=== PATIENT | female | born 1940 | race Caucasian/White ===

== ENCOUNTER 2017-11-30 19:51 | Inpatient (IN) ==
[2017-12-01] MEDS ORDERED: Cyanocobalamin (B-12) 1,000 MCG/ML VIAL IM ONE (00:23)
[2017-12-01] MEDS: Multivit/Ca/Min/Fe/FA 1 TAB TABLET PO SCH (10:37)
[2017-12-01] MEDS: Letrozole 2.5 MG TABLET PO SCH (10:38)
[2017-12-01] MEDS: Sennosides/Docusate Sodium TABLET PO SCH ×2 (10:38→20:02)
--- NOTE | 2017-12-01 15:45 | Internal Med History&Physical ---
Date of Encounter: 12/01/17 Time of Encounter: 15:15 Assessment and Plan (1) Breast cancer metastasized to bone Current visit: No Status: Acute As per oncologist Qualifiers: Laterality: left Qualified Code(s): C50.912 - Malignant neoplasm of unspecified site of left female breast; C79.51 - Secondary malignant neoplasm of bone (2) Left arm weakness Current visit: Yes Status: Acute She will have PT and OT evaluation tomorrow with ongoing intervention. (3) Hypokalemia Current visit: Yes Status: Acute Potassium level was 3.1 11/22/2017. Will recheck in a.m. (4) B12 deficiency Current visit: Yes Status: Acute Will check B12 level in a.m. (5) Thrombocytopenia Current visit: Yes Status: Acute Platelet count was 61K on 11/22/2017. Will recheck in a.m. (6) Fatigue Current visit: No Status: Acute Will have therapy evaluation in a.m. Qualifiers: Fatigue type: chronic, unspecified Qualified Code(s): R53.82 - Chronic fatigue, unspecified Internal Medicine - H&P: HPI Chief complaint: Status post cervical spine surgery Admitted From: Hospital to Hospital Transfer Plans for Post Hospital Care: Home History of present illness: Ms. Nick is a 77 year old female who was transferred to [facility] swing bed after a November 23- [facility] hospitalization for C6 nondisplaced fracture. Family reports she had multiple falls prior to the fracture. Neurosurgery performed a stabilization procedure with hardware placement and discectomy. She was admitted to swing bed for therapy prior to returning to independent living. She was diagnosed with breast cancer in 2005 and had recurrence documented January 2014 with multiple metastases in bones. She had left hip replacement January 2014 following pathologic fracture. The C6 vertebra was also found to have tumor involvement during her recent hospitalization. She is on hormone therapy but has not had XRT. She reports minimal pain present. She denies other internal malignancies. She has had anemia in the past with B12 deficiency. Past Med Surg Social Fam HX - Past Medical History Medical history: cancer, hyperlipidemia, hypertension, other Psychiatric history: no psych history - Past Surgical History Surgical History: appendectomy, breast surgery, cholecystectomy - Social History Smoking Status: Never smoker Smokeless Tobacco Status: No Alcohol use: none Drug use: none Internal Medicine - H&P: Meds Carvedilol [Coreg] 6.25 mg PO BIDWM 03/23/15 [History] Cyanocobalamin (B-12) [Vitamin B12] 1,000 mcg IM QMONTH 03/23/15 [History] Losartan [Cozaar] 2 tab PO DAILY 03/23/15 [History] Multivitamin [Multi-Day Vitamins] 1 each PO DAILY 03/23/15 [History] Rosuvastatin Calcium [Crestor] 10 mg PO DAILY 03/23/15 [History] Letrozole [Femara] 2.5 mg PO DAILY #90 tablet 03/19/17 [Rx] 3 Allergy/AdvReac Type Severity Reaction Status Date / Time Penicillins [PCN] Allergy Swelling Verified 10/29/17 13:06 of Lip/Tongue/Throat Sulfa (Sulfonamide Allergy Rash Verified 10/29/17 13:06 Antibiotics) All Systems PM: A 10-system review of systems was performed and is negative for pertinent findings except as documented above in the HPI. Review of systems: Gen.: Her weight has been stable the past few months Cardiovascular: She has history of hypertension but no MO heart failure DVT or pulmonary embolus. Respiratory: She is a lifelong nonsmoker and has no known chronic lung disease GI: She has had cholecystectomy but no disorders of her liver or exocrine pancreas : She has had nocturia but no other kidney or bladder disorders Neurologic: No history of large distribution strokes or seizures. Family reports she has had confusion since hospitalization in the past week. Endocrine: She has history of hyperlipidemia but no known diabetes or thyroid disease Hematology/oncology: As per history of present illness Psychiatric: She has anxiety but no significant depression or other mental health issues [place] skeletal: She has DJD but no known gout or other bone joint or muscle disorders. - Constitutional Vitals: Temp Pulse Resp BP Pulse Ox 97.6 F 92 17 148/85 94 12/01/17 07:15 12/01/17 07:15 12/01/17 07:15 12/01/17 07:15 12/01/17 07:15 Exam: Gen.: She is a well-developed well-nourished female resting comfortably in a chair at bedside. HEENT: Head is atraumatic and normocephalic. Eyes: EOMI. There is no scleral icterus. Mouth: Mucosa is moist. Neck: She is wearing a rigid collar. There is a healing lower neck anteriorly incision from recent cervical spine surgery. Heart: Regular without murmurs gallops or ectopics Lungs: No wheezes or crackles are heard. Abdomen: Soft and nontender. No masses or guarding are noted. Extremities: There is no cyanosis or clubbing noted. There is trace edema on the dorsum of the feet bilaterally. Neurologic: Mental status: She is able to answer a few questions and generally follows commands. Cranial nerves: Smile is symmetric. Forehead wrinkles bilaterally. Tongue protrudes midline. EOMI. Motor: She has symmetric strength on plantar flexion at the ankles. Dorsiflexion strength is 4/5 on the left and 4+/5 on the right. She cannot hold her left arm up against gravity. The right arm can be outstretched against gravity but appears unstable in movement. Finger to nose testing is intact with the right arm. Skin: Warm and dry.
[2017-12-02] MEDS: Multivit/Ca/Min/Fe/FA 1 TAB TABLET PO SCH (08:41)
[2017-12-02] MEDS: Letrozole 2.5 MG TABLET PO SCH (08:41)
[2017-12-02] MEDS: Sennosides/Docusate Sodium TABLET PO SCH ×2 (08:41→21:34)
[2017-12-02 08:52] LABS: Hematocrit 29.1 % (35.3-44.9); Hemoglobin 9.8 g/dL (11.5-15.4); Mean Corpuscular HGB Conc 33.7 g/dL (31.6-35.5); Mean Corpuscular Hemoglobin 31.7 pg (28.0-33.3); Mean Corpuscular Volume 94.2 fL (83.0-100.0); Nucleated Red Blood Cells 0.3 /100 WBC (0); Platelet Count 168 K/mcL (140-400); Red Blood Count 3.09 M/mcL (3.82-4.97); Red Cell Distribution Width 14.6 % (11.5-14.5)
[2017-12-02 09:39] LABS: Thyroid Stimulating Hormone 5.784 mcIU/mL (0.340-5.600)
[2017-12-02 10:12] LABS: Alanine Aminotransferase 49 Units/L (7-52); Alkaline Phosphatase 136 Units/L (34-104); Aspartate Amino Transferase 85 Units/L (13-39); BUN/Creatinine Ratio 20 (6-26); Bilirubin,Total 0.9 mg/dL (0.3-1.0); Blood Urea Nitrogen 10 mg/dL (8-23); Carbon Dioxide 28 mEq/L (23-29); Chloride 104 mEq/L (98-107); Glucose 100 mg/dL (70-105); Osmolality,Calculated 289 (280-300); Potassium 3.2 mEq/L (3.5-5.1); Sodium 140 mEq/L (136-145); eGFR For African Americans > 60 (> 60); eGFR For Non-African Americans > 60 (> 60)
[2017-12-02 11:25] LABS: Lymphocytes # 1.2 K/mcL (0.6-4.6); Monocytes # 0.3 K/mcL (0.0-1.3); Neutrophils # 4.6 K/mcL (1.6-8.9)
[2017-12-02 11:26] LABS: Platelet Estimate Normal (Normal); Reactive Lymphocytes Present (Not Present)
--- NOTE | 2017-12-02 12:43 | Internal Med Progress Note ---
Date of Encounter: 12/02/17 Time of Encounter: 12:35 - Assessment and plan (1) Breast cancer metastasized to bone Current Visit: No Status: Acute Assessment and plan: December 02. As per oncologist Qualifiers: Laterality: left Qualified Code(s): C50.912 - Malignant neoplasm of unspecified site of left female breast; C79.51 - Secondary malignant neoplasm of bone (2) Left arm weakness Current Visit: Yes Status: Acute Assessment and plan: December 02. As per therapy (3) Hypokalemia Current Visit: Yes Status: Acute Assessment and plan: December 02. Potassium low at 3.2. Will give supplemental potassium and monitor labs. (4) B12 deficiency Current Visit: Yes Status: Acute Assessment and plan: December 02. B12 level pending. (5) Thrombocytopenia Current Visit: Yes Status: Acute Assessment and plan: December 02. Resolved. Platelet count normal at 168K. (6) Fatigue Current Visit: No Status: Acute Assessment and plan: December 02. Continue present management Qualifiers: Fatigue type: chronic, unspecified Qualified Code(s): R53.82 - Chronic fatigue, unspecified (7) Anemia Current Visit: Yes Status: Acute Assessment and plan: December 02. Will order anemia testing in a.m. Qualifiers: Anemia type: unspecified type Qualified Code(s): D64.9 - Anemia, unspecified - Subjective Interval history: December 02. She has no new complaints. - Constitutional Vitals: Temp Pulse Resp BP Pulse Ox 99.1 F 112 20 105/99 94 12/02/17 07:32 12/02/17 07:32 12/02/17 07:32 12/02/17 07:32 12/02/17 07:32 Exam: She is sitting in a chair at bedside resting comfortably finishing her lunch. Her affect is bright and cheerful. She is more alert and talkative today. She answers questions appropriately. I reviewed her medications. I reviewed pertinent lab results with her. Internal Medicine: Result - Labs CBC & Chem 7: 12/02/17 08:15 12/02/17 08:15 Labs: Short CBC 12/02/17 Range/Units 08:15 WBC 6.6 (4.3-11.1) K/mcL Hgb 9.8 L (11.5-15.4) g/dL Hct 29.1 L (35.3-44.9) % Plt Count 168 (140-400) K/mcL Neutrophils # 4.6 (1.6-8.9) K/mcL BMP 12/02/17 08:15 Sodium 140 Potassium 3.2 L Chloride 104 Carbon Dioxide 28 BUN 10 Creatinine 0.49 L Glucose 100 Calcium 8.0 L Liver Function 12/02/17 Range/Units 08:15 Total Bilirubin 0.9 (0.3-1.0) mg/dL AST 85 H (13-39) Units/L ALT 49 (7-52) Units/L Alkaline Phosphatase 136 H (34-104) Units/L Albumin 3.0 L (3.5-5.7) g/dL Consult Discharge Plan - Plan Referrals: Anna Beckett, VICE PRESIDENT PAYER [Primary Care Provider] - 1 week
[2017-12-03 07:09] LABS: Basophils % 0.4 %; Eosinophils % 0.2 %; Hematocrit 25.7 % (35.3-44.9); Hemoglobin 8.5 g/dL (11.5-15.4); Immature Granulocytes % 5.1 % (0-4); Lymphocytes # 1.8 K/mcL (0.6-4.6); Lymphocytes % 33.5 %; Mean Corpuscular HGB Conc 33.1 g/dL (31.6-35.5); Mean Corpuscular Hemoglobin 31.5 pg (28.0-33.3); Mean Corpuscular Volume 95.2 fL (83.0-100.0); Mean Platelet Volume 11.8 fL (9.4-12.4); Monocytes # 0.7 K/mcL (0.0-1.3); Monocytes % 12.7 %; Neutrophils # 2.5 K/mcL (1.6-8.9); Platelet Count 146 K/mcL (140-400); Segmented Neutrophils % 48.1 %
[2017-12-03 07:33] LABS: BUN/Creatinine Ratio 20 (6-26); Blood Urea Nitrogen 10 mg/dL (8-23); Carbon Dioxide 30 mEq/L (23-29); Chloride 105 mEq/L (98-107); Glucose 81 mg/dL (70-105); Osmolality,Calculated 290 (280-300); Potassium 3.3 mEq/L (3.5-5.1); Sodium 141 mEq/L (136-145); eGFR For African Americans > 60 (> 60); eGFR For Non-African Americans > 60 (> 60)
[2017-12-03] MEDS: Letrozole 2.5 MG TABLET PO SCH (08:10)
[2017-12-03] MEDS: Sennosides/Docusate Sodium TABLET PO SCH ×2 (08:10→20:43)
[2017-12-03] MEDS: Multivit/Ca/Min/Fe/FA 1 TAB TABLET PO SCH (08:10)
[2017-12-03 09:01] LABS: Platelet Estimate Normal (Normal)
[2017-12-03 11:40] LABS: % Iron Saturation 27 % (15-50); Ferritin 1170 ng/ml (10-120); Iron 78 mcg/dL (50-170); Transferrin 210 mg/dL (203-362)
--- NOTE | 2017-12-03 15:56 | Internal Med Progress Note ---
Date of Encounter: 12/03/17 Time of Encounter: 15:45 - Assessment and plan (1) Breast cancer metastasized to bone Current Visit: No Status: Acute Assessment and plan: December 02. As per oncologist Qualifiers: Laterality: left Qualified Code(s): C50.912 - Malignant neoplasm of unspecified site of left female breast; C79.51 - Secondary malignant neoplasm of bone (2) Left arm weakness Current Visit: Yes Status: Acute Assessment and plan: December 02. As per therapy December 03. She had pronator drift and left arm weakness today unchanged from admission. Continue therapy intervention. (3) Hypokalemia Current Visit: Yes Status: Acute Assessment and plan: December 02. Potassium low at 3.2. Will give supplemental potassium and monitor labs. December 03. Improving. Continue supplemental potassium. (4) B12 deficiency Current Visit: Yes Status: Acute Assessment and plan: December 02. B12 level pending. December 03. B12 level greater than 1500. Remain off supplemental B12 for now. (5) Thrombocytopenia Current Visit: Yes Status: Acute Assessment and plan: December 02. Resolved. Platelet count normal at 168K. (6) Fatigue Current Visit: No Status: Acute Assessment and plan: December 02. Continue present management Qualifiers: Fatigue type: chronic, unspecified Qualified Code(s): R53.82 - Chronic fatigue, unspecified (7) Anemia Current Visit: Yes Status: Acute Assessment and plan: December 02. Will order anemia testing in a.m. December 03. Anemia testing showed iron 78, transferrin saturation 27%, transferrin 210, ferritin 1170, B12 >1500, and folate >22.3. Hemoglobin has decreased to 8.5. We will continue to monitor CBC. Qualifiers: Anemia type: unspecified type Qualified Code(s): D64.9 - Anemia, unspecified - Subjective Interval history: December 02. She has no new complaints. December 03. She has no new complaints. - Constitutional Vitals: Temp Pulse Resp BP Pulse Ox 97.6 F 80 20 123/64 93 12/03/17 07:29 12/03/17 07:29 12/03/17 07:29 12/03/17 07:29 12/03/17 07:29 Exam: She is resting comfortably in bed and appears in no acute distress. Her affect is bright and cheerful. She is very talkative today. I reviewed her medications and lab results. Internal Medicine: Result - Labs CBC & Chem 7: 12/03/17 06:15 12/03/17 06:15 Labs: Short CBC 12/03/17 Range/Units 06:15 WBC 5.3 (4.3-11.1) K/mcL Hgb 8.5 L (11.5-15.4) g/dL Hct 25.7 L (35.3-44.9) % Plt Count 146 (140-400) K/mcL Neutrophils # 2.5 (1.6-8.9) K/mcL BMP 12/03/17 06:15 Sodium 141 Potassium 3.3 L Chloride 105 Carbon Dioxide 30 H BUN 10 Creatinine 0.51 L Glucose 81 Calcium 8.0 L Consult Discharge Plan - Plan Referrals: Anna Beckett, REPAIR WEAVER [Primary Care Provider] - 1 week
[2017-12-03] MEDS ORDERED: Gabapentin 100 MG CAPSULE PO ONE (22:40)
[2017-12-04] MEDS: Sennosides/Docusate Sodium TABLET PO SCH ×2 (08:47→21:11)
[2017-12-04] MEDS: Multivit/Ca/Min/Fe/FA 1 TAB TABLET PO SCH (08:48)
[2017-12-04] MEDS: Letrozole 2.5 MG TABLET PO SCH (08:48)
[2017-12-05] MEDS: Letrozole 2.5 MG TABLET PO SCH (09:10)
[2017-12-05] MEDS: Sennosides/Docusate Sodium TABLET PO SCH ×2 (09:11→20:43)
[2017-12-05] MEDS: Multivit/Ca/Min/Fe/FA 1 TAB TABLET PO SCH (09:11)
[2017-12-06 06:33] LABS: Basophils % 0.2 %; Eosinophils % 0.2 %; Hematocrit 27.1 % (35.3-44.9); Hemoglobin 8.7 g/dL (11.5-15.4); Immature Granulocytes % 0.5 % (0-4); Lymphocytes # 1.3 K/mcL (0.6-4.6); Lymphocytes % 30.2 %; Mean Corpuscular HGB Conc 32.1 g/dL (31.6-35.5); Mean Corpuscular Hemoglobin 31.6 pg (28.0-33.3); Mean Corpuscular Volume 98.5 fL (83.0-100.0); Mean Platelet Volume 11.1 fL (9.4-12.4); Monocytes # 0.6 K/mcL (0.0-1.3); Monocytes % 13.3 %; Neutrophils # 2.5 K/mcL (1.6-8.9); Platelet Count 133 K/mcL (140-400); Red Blood Count 2.75 M/mcL (3.82-4.97); Segmented Neutrophils % 55.6 %
[2017-12-06 06:54] LABS: BUN/Creatinine Ratio 21 (6-26); Blood Urea Nitrogen 12 mg/dL (8-23); Calcium 8.8 mg/dL (8.6-10.3); Carbon Dioxide 31 mEq/L (23-29); Chloride 105 mEq/L (98-107); Glucose 88 mg/dL (70-105); Osmolality,Calculated 295 (280-300); Potassium 3.4 mEq/L (3.5-5.1); Sodium 143 mEq/L (136-145); eGFR For African Americans > 60 (> 60); eGFR For Non-African Americans > 60 (> 60)
[2017-12-06 07:01] LABS: Platelet Estimate Normal (Normal)
[2017-12-06] MEDS: Letrozole 2.5 MG TABLET PO SCH (08:29)
[2017-12-06] MEDS: Sennosides/Docusate Sodium TABLET PO SCH ×2 (08:29→21:06)
[2017-12-06] MEDS: Multivit/Ca/Min/Fe/FA 1 TAB TABLET PO SCH (08:29)
--- NOTE | 2017-12-06 16:10 | Internal Med Progress Note ---
Date of Encounter: 12/06/17 Time of Encounter: 16:00 - Assessment and plan (1) Breast cancer metastasized to bone Current Visit: No Status: Acute Assessment and plan: December 02. As per oncologist Qualifiers: Laterality: left Qualified Code(s): C50.912 - Malignant neoplasm of unspecified site of left female breast; C79.51 - Secondary malignant neoplasm of bone (2) Left arm weakness Current Visit: Yes Status: Acute Assessment and plan: December 02. As per therapy December 03. She had pronator drift and left arm weakness today unchanged from admission. Continue therapy intervention. (3) Hypokalemia Current Visit: Yes Status: Acute Assessment and plan: December 02. Potassium low at 3.2. Will give supplemental potassium and monitor labs. December 03. Improving. Continue supplemental potassium. December 06. Further improvement. Continue present regimen. (4) B12 deficiency Current Visit: Yes Status: Acute Assessment and plan: December 02. B12 level pending. December 03. B12 level greater than 1500. Remain off supplemental B12 for now. (5) Thrombocytopenia Current Visit: Yes Status: Acute Assessment and plan: December 02. Resolved. Platelet count normal at 168K. December 06. Slight decrease to 133K today. Continue to monitor. (6) Fatigue Current Visit: No Status: Acute Assessment and plan: December 02. Continue present management Qualifiers: Fatigue type: chronic, unspecified Qualified Code(s): R53.82 - Chronic fatigue, unspecified (7) Anemia Current Visit: Yes Status: Acute Assessment and plan: December 02. Will order anemia testing in a.m. December 03. Anemia testing showed iron 78, transferrin saturation 27%, transferrin 210, ferritin 1170, B12 >1500, and folate >22.3. Hemoglobin has decreased to 8.5. We will continue to monitor CBC. December 06. Hemoglobin slightly improved at 8.7. Continue to monitor. Qualifiers: Anemia type: unspecified type Qualified Code(s): D64.9 - Anemia, unspecified - Subjective Interval history: December 02. She has no new complaints. December 03. She has no new complaints. December 06. She has no new complaints and feels better. - Constitutional Vitals: Temp Pulse Resp BP Pulse Ox 98.0 F 85 16 138/73 96 12/06/17 07:07 12/06/17 07:07 12/06/17 07:07 12/06/17 07:07 12/06/17 07:07 Exam: She is resting comfortably in bed and appears in no acute distress. Her affect is bright and cheerful. There is no extremity edema. I reviewed her medications and lab results. Internal Medicine: Result - Labs CBC & Chem 7: 12/06/17 06:13 12/06/17 06:13 Labs: Short CBC 12/06/17 Range/Units 06:13 WBC 4.4 (4.3-11.1) K/mcL Hgb 8.7 L (11.5-15.4) g/dL Hct 27.1 L (35.3-44.9) % Plt Count 133 L (140-400) K/mcL Neutrophils # 2.5 (1.6-8.9) K/mcL BMP 12/06/17 06:13 Sodium 143 Potassium 3.4 L Chloride 105 Carbon Dioxide 31 H BUN 12 Creatinine 0.57 L Glucose 88 Calcium 8.8 Consult Discharge Plan - Plan Referrals: Anna Beckett, JAVA ANDROID DEVELOPER [Primary Care Provider] - 1 week
[2017-12-07] MEDS: Letrozole 2.5 MG TABLET PO SCH (09:03)
[2017-12-07] MEDS: Sennosides/Docusate Sodium TABLET PO SCH ×2 (09:04→21:21)
[2017-12-07] MEDS: Multivit/Ca/Min/Fe/FA 1 TAB TABLET PO SCH (09:04)
[2017-12-08] MEDS: Letrozole 2.5 MG TABLET PO SCH (08:53)
[2017-12-08] MEDS: Multivit/Ca/Min/Fe/FA 1 TAB TABLET PO SCH (08:53)
[2017-12-08] MEDS: Sennosides/Docusate Sodium TABLET PO SCH ×2 (08:54→20:30)
--- NOTE | 2017-12-08 10:27 | Internal Med Progress Note ---
Date of Encounter: 12/08/17 Time of Encounter: 10:20 - Assessment and plan (1) Breast cancer metastasized to bone Current Visit: No Status: Acute Assessment and plan: December 02. As per oncologist Qualifiers: Laterality: left Qualified Code(s): C50.912 - Malignant neoplasm of unspecified site of left female breast; C79.51 - Secondary malignant neoplasm of bone (2) Left arm weakness Current Visit: Yes Status: Acute Assessment and plan: December 02. As per therapy December 03. She had pronator drift and left arm weakness today unchanged from admission. Continue therapy intervention. (3) Hypokalemia Current Visit: Yes Status: Acute Assessment and plan: December 02. Potassium low at 3.2. Will give supplemental potassium and monitor labs. December 03. Improving. Continue supplemental potassium. December 06. Further improvement. Continue present regimen. December 08. Continue present regimen. Recheck labs in a.m. (4) B12 deficiency Current Visit: Yes Status: Acute Assessment and plan: December 02. B12 level pending. December 03. B12 level greater than 1500. Remain off supplemental B12 for now. (5) Thrombocytopenia Current Visit: Yes Status: Acute Assessment and plan: December 02. Resolved. Platelet count normal at 168K. December 06. Slight decrease to 133K today. Continue to monitor. December 08. Recheck labs in a.m. (6) Fatigue Current Visit: No Status: Acute Assessment and plan: December 02. Continue present management Qualifiers: Fatigue type: chronic, unspecified Qualified Code(s): R53.82 - Chronic fatigue, unspecified (7) Anemia Current Visit: Yes Status: Acute Assessment and plan: December 02. Will order anemia testing in a.m. December 03. Anemia testing showed iron 78, transferrin saturation 27%, transferrin 210, ferritin 1170, B12 >1500, and folate >22.3. Hemoglobin has decreased to 8.5. We will continue to monitor CBC. December 06. Hemoglobin slightly improved at 8.7. Continue to monitor. December 08. Recheck labs in a.m. Qualifiers: Anemia type: unspecified type Qualified Code(s): D64.9 - Anemia, unspecified - Subjective Interval history: December 02. She has no new complaints. December 03. She has no new complaints. December 06. She has no new complaints and feels better. December 08. She has no new complaints. - Constitutional Vitals: Temp Pulse Resp BP Pulse Ox 98.6 F 85 16 144/106 96 12/08/17 07:04 12/08/17 07:04 12/08/17 07:04 12/08/17 07:04 12/08/17 07:04 Exam: She is resting comfortably in bed and appears in no acute distress. Her affect is bright and cheerful. She is very talkative. I reviewed her medications and lab results. Internal Medicine: Result - Labs CBC & Chem 7: 12/06/17 06:13 12/06/17 06:13 Consult Discharge Plan - Plan Referrals: Anna Beckett, PLANNING MANAGER [Primary Care Provider] - 1 week
[2017-12-09 05:07] LABS: Basophils % 0.5 %; Eosinophils % 0.2 %; Hematocrit 25.5 % (35.3-44.9); Hemoglobin 8.3 g/dL (11.5-15.4); Immature Granulocytes % 0.5 % (0-4); Lymphocytes # 1.4 K/mcL (0.6-4.6); Lymphocytes % 33.7 %; Mean Corpuscular HGB Conc 32.5 g/dL (31.6-35.5); Mean Corpuscular Hemoglobin 32.5 pg (28.0-33.3); Monocytes # 0.6 K/mcL (0.0-1.3); Monocytes % 14.7 %; Platelet Count 114 K/mcL (140-400); Red Blood Count 2.55 M/mcL (3.82-4.97); Red Cell Distribution Width 17.3 % (11.5-14.5); Segmented Neutrophils % 50.4 %
[2017-12-09 05:31] LABS: BUN/Creatinine Ratio 19 (6-26); Blood Urea Nitrogen 11 mg/dL (8-23); Calcium 8.9 mg/dL (8.6-10.3); Carbon Dioxide 31 mEq/L (23-29); Chloride 104 mEq/L (98-107); Glucose 88 mg/dL (70-105); Osmolality,Calculated 285 (280-300); Potassium 4.1 mEq/L (3.5-5.1); Sodium 138 mEq/L (136-145); eGFR For African Americans > 60 (> 60); eGFR For Non-African Americans > 60 (> 60)
[2017-12-09] MEDS: Multivit/Ca/Min/Fe/FA 1 TAB TABLET PO SCH (08:54)
[2017-12-09] MEDS: Sennosides/Docusate Sodium TABLET PO SCH (08:55)
[2017-12-09] MEDS: Letrozole 2.5 MG TABLET PO SCH (08:55)
[2017-12-10] MEDS: Sennosides/Docusate Sodium TABLET PO SCH ×3 (06:19→22:42)
[2017-12-10] MEDS: Letrozole 2.5 MG TABLET PO SCH (08:15)
[2017-12-10] MEDS: Multivit/Ca/Min/Fe/FA 1 TAB TABLET PO SCH (08:15)
--- NOTE | 2017-12-10 12:19 | Internal Med Progress Note ---
Date of Encounter: 12/10/17 Time of Encounter: 12:10 - Assessment and plan (1) Breast cancer metastasized to bone Current Visit: No Status: Acute Assessment and plan: December 02. As per oncologist Qualifiers: Laterality: left Qualified Code(s): C50.912 - Malignant neoplasm of unspecified site of left female breast; C79.51 - Secondary malignant neoplasm of bone (2) Left arm weakness Current Visit: Yes Status: Acute Assessment and plan: December 02. As per therapy December 03. She had pronator drift and left arm weakness today unchanged from admission. Continue therapy intervention. (3) Hypokalemia Current Visit: Yes Status: Acute Assessment and plan: December 02. Potassium low at 3.2. Will give supplemental potassium and monitor labs. December 03. Improving. Continue supplemental potassium. December 06. Further improvement. Continue present regimen. December 08. Continue present regimen. Recheck labs in a.m. December 10. Normal at 4.1. Continue present regimen. (4) B12 deficiency Current Visit: Yes Status: Acute Assessment and plan: December 02. B12 level pending. December 03. B12 level greater than 1500. Remain off supplemental B12 for now. (5) Thrombocytopenia Current Visit: Yes Status: Acute Assessment and plan: December 02. Resolved. Platelet count normal at 168K. December 06. Slight decrease to 133K today. Continue to monitor. December 08. Recheck labs in a.m. December 10. Further slight decrease to 114 K. (6) Fatigue Current Visit: No Status: Acute Assessment and plan: December 02. Continue present management Qualifiers: Fatigue type: chronic, unspecified Qualified Code(s): R53.82 - Chronic fatigue, unspecified (7) Anemia Current Visit: Yes Status: Acute Assessment and plan: December 02. Will order anemia testing in a.m. December 03. Anemia testing showed iron 78, transferrin saturation 27%, transferrin 210, ferritin 1170, B12 >1500, and folate >22.3. Hemoglobin has decreased to 8.5. We will continue to monitor CBC. December 06. Hemoglobin slightly improved at 8.7. Continue to monitor. December 08. Recheck labs in a.m. December 10. Hemoglobin slightly decreased to 8.3. Qualifiers: Anemia type: unspecified type Qualified Code(s): D64.9 - Anemia, unspecified - Subjective Interval history: December 02. She has no new complaints. December 03. She has no new complaints. December 06. She has no new complaints and feels better. December 08. She has no new complaints. December 10. She has no new complaints and feels better. She anticipates discharge home tomorrow. - Constitutional Vitals: Temp Pulse Resp BP Pulse Ox 98.1 F 79 16 131/73 96 12/10/17 06:00 12/10/17 06:00 12/10/17 06:00 12/10/17 06:00 12/10/17 06:00 Exam: She is resting comfortably in a chair at bedside eating lunch. Her affect is bright and cheerful. I reviewed her medications and lab results. Internal Medicine: Result - Labs CBC & Chem 7: 12/09/17 04:35 12/09/17 04:35 Consult Discharge Plan - Plan Referrals: Anna Beckett, OUTPATIENT CASE MANAGER [Primary Care Provider] - 1 week
[2017-12-11] MEDS: Letrozole 2.5 MG TABLET PO SCH (07:39)
[2017-12-11] MEDS: Multivit/Ca/Min/Fe/FA 1 TAB TABLET PO SCH (07:39)
[2017-12-11] MEDS: Sennosides/Docusate Sodium TABLET PO SCH (07:39)
--- NOTE | 2017-12-11 10:08 | Discharge Summary ---
Date of Encounter: 12/11/17 Time of Encounter: 09:55 - Discharge Diagnosis (1) Breast cancer metastasized to bone Priority: Primary Status: Acute Qualifiers: Laterality: left Qualified Code(s): C50.912 - Malignant neoplasm of unspecified site of left female breast; C79.51 - Secondary malignant neoplasm of bone (2) Left arm weakness Priority: Secondary Status: Acute (3) Hypokalemia Priority: Secondary Status: Resolved (4) B12 deficiency Priority: Secondary Status: Chronic (5) Thrombocytopenia Priority: Secondary Status: Acute (6) Fatigue Priority: Secondary Status: Chronic Qualifiers: Fatigue type: chronic, unspecified Qualified Code(s): R53.82 - Chronic fatigue, unspecified (7) Anemia Priority: Secondary Status: Acute Qualifiers: Anemia type: unspecified type Qualified Code(s): D64.9 - Anemia, unspecified Hospital course: Ms. Nick is a 77 year old female who was transferred to [facility] swing bed after a November 23- [facility] hospitalization for C6 nondisplaced fracture. Family reports she had multiple falls prior to the fracture. Neurosurgery performed a stabilization procedure with hardware placement and discectomy. She was admitted to swing bed for therapy prior to returning to independent living. Initial orders were written by the discharging physicians. I saw her on December 01 and performed the swing bed history and physical. She had physical therapy and occupational therapy evaluations with ongoing interventions. She made satisfactory progress and gained strength and mobility. Her left arm weakness improved. On December 11 arrangements were complete for her to be discharged home. She would benefit from a semi-electric hospital bed since she requires frequent changes in body position and requires positioning not feasible with an ordinary bed to alleviate pain. She requires side rails to assist in position changes. Anemia testing showed iron 78, transferrin saturation 27%, transferrin 210, ferritin 1170, B12 vitamin > 1500, and folate > 22.3. Supplemental B12 will be discontinued for now. Her PCP can monitor this. Platelet count was normal at 168K on 12/01/2017 but gradually declined to 114 K on 12/09/2017. She remained asymptomatic from this. Her PCP can monitor this. Supplemental potassium was given and hypokalemia resolved. Her PCP can monitor this. On December 11 she was stable for discharge home. She will follow with her oncologist as directed and with her PCP within 1 week. - Time Spent with Patient Total time spent providing and/or coordinating discharge services: - Discharge Medications Home Medications: Carvedilol [Coreg] 6.25 mg PO BIDWM 03/23/15 [History] Multivitamin [Multi-Day Vitamins] 1 each PO DAILY 03/23/15 [History] Letrozole [Femara] 2.5 mg PO DAILY #90 tablet 03/19/17 [Rx] Losartan [Cozaar] 25 mg PO DAILY #0 12/11/17 [Rx] Allergies/Adverse Reactions: 3 Allergy/AdvReac Type Severity Reaction Status Date / Time Penicillins [PCN] Allergy Swelling Verified 10/29/17 13:06 of Lip/Tongue/Throat Sulfa (Sulfonamide Allergy Rash Verified 10/29/17 13:06 Antibiotics) Date of admission: 11/30/17 20:00 Primary care physician: Anna Beckett CNP Consults: 11/30/17 23:44 Consult to Occupational Therapy [CONS] Routine Comment: weakness Reason for Consult: to evaluate, plan, and implement POC Does patient have active BEDREST order?: No Is patient medically & hemodynamically stable?: Yes Patient assessed for mobility or mobilized this visit?: No Consult to Physical Therapy [CONS] Routine Comment: weakness Reason for Consult: to evaluate, plan, and implement POC. Does patient have active BEDREST order?: No Is patient medically & hemodynamically stable?: Yes Patient assessed for mobility or mobilized this visit?: No Consult to Wash And Greaser [CONS] Routine Reason for SW Consult: discharge planning 12/03/17 09:49 Consult to Speech Therapy [CONS] Routine Comment: Evaluate, develop and implement POC Reason for Consult: possible diet advancement Call Completed: Yes - Constitutional Vitals: Temp Pulse Resp BP Pulse Ox 98.6 F 80 17 126/60 98 12/10/17 18:53 12/11/17 07:37 12/11/17 07:37 12/11/17 07:37 12/11/17 07:37 - Patient Status Disposition: Home Health Service Functional capacity at discharge: uses cane/walker Overall status at discharge: patient is progressing back to baseline - Discharge Instructions Follow Up With: Anna Beckett CNP [Primary Care Provider] - 1 week - Diet and Activity Activity: as per physical therapy Diet: advance to your usual diet
--- NOTE | 2017-12-11 10:16 | Physician Discharge Referral ---
Home Health/Hosp Referral Info Transfer to: Home Health Attending Provider: Scotty Provider in Charge Post Discharge: PCP (Anna Beckett CNP) - Diagnosis (1) Breast cancer metastasized to bone Priority: Primary Status: Acute (2) Left arm weakness Priority: Secondary Status: Acute (3) Hypokalemia Priority: Secondary Status: Resolved (4) B12 deficiency Priority: Secondary Status: Chronic (5) Thrombocytopenia Priority: Secondary Status: Acute (6) Fatigue Priority: Secondary Status: Chronic (7) Anemia Priority: Secondary Status: Acute - Respiratory Orders Smoking Cessation: Smoking cessation has been advised. For more information, call the [place] Tobacco Quit Line at 9-076-BWVB-NOW. - Diet/Nutrition Diet/Nutrition Orders: Mechanical Soft - Activity Activity Orders: Walker - Services Needed Following services are medically necessary services: Nursing, Home Health Aide, Physical Therapy, Occupational Therapy - Transfer Medications Home Medications: Carvedilol [Coreg] 6.25 mg PO BIDWM 03/23/15 [History] Multivitamin [Multi-Day Vitamins] 1 each PO DAILY 03/23/15 [History] Letrozole [Femara] 2.5 mg PO DAILY #90 tablet 03/19/17 [Rx] Losartan [Cozaar] 25 mg PO DAILY #0 12/11/17 [Rx] Allergies/Adverse Reactions: 3 Allergy/AdvReac Type Severity Reaction Status Date / Time Penicillins [PCN] Allergy Swelling Verified 10/29/17 13:06 of Lip/Tongue/Throat Sulfa (Sulfonamide Allergy Rash Verified 10/29/17 13:06 Antibiotics) Certification: Further, I certify that my clinical findings support that this patient is homebound (i.e. absences from home require considerable and taxing effort and are for medical reasons or rastafarian services or infrequently or short duration when for other reasons) because: Homebound Reason: Leaving home requires considerable and taxing effort due to condition (Impaired mobility from cervical spine surgery) Attestation: My signature below is to certify that this patient is under my care and that I, or nurse practitioner, or a physician's high school assistant principal working with me, has a face-to -face encounter with this patient.
[2017-12-11 17:23] VITALS: BP 127/72
== END 2017-12-11 12:00 | disposition home health service (06) | DRG 945 ==
LOC: INPPIK 20:00
PROVIDERS: ADMIT Internal Medicine; ATTEND Internal Medicine

== ENCOUNTER 2018-10-01 20:30 | Inpatient (IN) ==
[2018-10-02] MEDS ORDERED: DABIGATRAN ETEXILATE MESYLATE 110 MG PO SCH (09:00)
[2018-10-02] MEDS ORDERED: Aspirin Enteric Coated 325 MG Tablet PO SCH (09:00)
[2018-10-02] MEDS: Multivit/Ca/Min/Fe/FA 1 TAB TABLET PO SCH (10:38)
--- NOTE | 2018-10-02 17:59 | Internal Med History&Physical ---
Date of Encounter: 10/02/18 Time of Encounter: 17:30 Assessment and Plan (1) Femoral distal fracture Current visit: No Status: Acute Status post plate and screw repair. She will remain nonweightbearing at this time. PT and OT evaluations will be done. Qualifiers: Encounter type: initial encounter Fracture type: closed Fracture morphology: unspecified fracture morphology Laterality: left Qualified Code(s): S72.402A - Unspecified fracture of lower end of left femur, initial encounter for closed fracture (2) Pancytopenia Current visit: Yes Status: Acute Anemia testing will be done in a.m. (3) Macrocytosis Current visit: Yes Status: Acute Check anemia testing in a.m. TSH was normal at 4.181 on 07/23/2018. (4) Deep vein thrombosis (DVT) of popliteal vein of left lower extremity Current visit: No Status: Chronic Continue Pradaxa Qualifiers: Chronicity: chronic Qualified Code(s): I82.532 - Chronic embolism and thrombosis of left popliteal vein (5) Breast cancer metastasized to bone Current visit: No Status: Chronic As per oncologist Qualifiers: Laterality: left Qualified Code(s): C50.912 - Malignant neoplasm of unspecified site of left female breast; C79.51 - Secondary malignant neoplasm of bone Internal Medicine - H&P: HPI Chief complaint: Left femur fracture Admitted From: Hospital to Hospital Transfer Plans for Post Hospital Care: Home History of present illness: Ms. Nick is a 78 year old female who was hospitalized at [facility] September 26- after a fall at home resulting in distal left femur fracture. She underwent plate and screw repair 09/29/2018 by . She received 1 unit packed red blood cells transfusion postoperatively. She was discharged to [facility] swing bed for rehabilitation therapy before [place] to independent living[place] [facility] [place] for left hip replacement 2013 following pathologic fracture. She had C6 nondisplaced fracture with surgical repair at [facility] November 2017. She has multiple bony metastases from breast cancer. She has DJD but no known gout or other bone joint or muscle disorders. Past Med Surg Social Fam HX - Past Medical History Medical history: cancer, DVT, hyperlipidemia, hypertension, other Additional medical history: Breast and Bone Ca. Psychiatric history: no psych history - Past Surgical History Surgical History: appendectomy, breast surgery, cholecystectomy Additional surgical history: 11/26/17 cervical 4-5 discectomy. anterior cervical w/fusion with cervical six corpectomy. lumpectomy left breast. 09/29/18- Left Femur ORIF - Social History Smoking Status: Never smoker Smokeless Tobacco Status: No Alcohol use: none Drug use: none Internal Medicine - H&P: Meds Carvedilol [Coreg] 6.25 mg PO BIDWM 03/23/15 [History] Dabigatran Etexilate Mesylate [Pradaxa] 110 mg PO BID #180 capsule 06/10/18 [Rx] Cyanocobalamin (B-12) [Vitamin B12] 1,000 mcg IM QMONTH #12 vial 08/20/18 [Rx] Losartan Potassium 50 mg PO DAILY 09/27/18 [History] Multivitamin [Daily Multiple Vitamin] 1 tab PO DAILY 09/27/18 [History] Aspirin Enteric Coated [Aspirin EC] 325 mg PO BID 10 Days #20 tablet. 10/01/18 [Rx] OxyCODONE/APAP 7.5/325 [Percocet 7.5/325 MG] 1 each PO Q6HR PRN 2 Days #8 tablet 10/01/18 [Rx] Polyethylene Glycol 3350 [MiraLAX] 17 gm PO DAILY 5 Days #5 powd.pack 10/01/18 [Rx] Allergy/AdvReac Type Severity Reaction Status Date / Time Penicillins [PCN] Allergy Swelling Verified 09/27/18 14:33 of Lip/Tongue/Throat Sulfa (Sulfonamide Allergy Rash Verified 09/27/18 14:33 Antibiotics) All Systems PM: A 10-system review of systems was performed and is negative for pertinent findings except as documented above in the HPI. Review of systems: Gen.: Her weight has decreased from 87.2 kg on 12/11/2017 to 84.7 kg on admission now. Cardiovascular: She has history of hypertension but no [place] heart failure or pulmonary embolus. She reports she did have a DVT diagnosed 2017. She remains on Pradaxa. Respiratory: She is a lifelong nonsmoker and has no known chronic lung disease GI: She has had cholecystectomy but no disorders of her liver or exocrine pancreas : She has had nocturia but no other kidney or bladder disorders Neurologic: No history of large distribution strokes or seizures. Endocrine: She has history of hyperlipidemia but no known diabetes or thyroid disease Hematology/oncology: She was diagnosed with breast cancer in 2005 and had recurrence documented January 2014 with multiple metastases in bones. She had left hip replacement January 2014 following pathologic fracture. The C6 vertebra was also found to have tumor involvement during her recent hospitalization. She is on hormone therapy but has not had XRT. She denies other internal malignancies. She has had anemia in the past with B12 deficiency. Psychiatric: She has anxiety but no significant depression or other mental health issues [place] skeletal: As per history of present illness - Constitutional Vitals: Temp Pulse Resp BP Pulse Ox 98.8 F 80 16 116/61 95 10/02/18 07:39 10/02/18 07:39 10/02/18 07:39 10/02/18 07:39 10/02/18 07:39 Exam: Gen.: She is a well-developed well-nourished female resting in bed appears in no acute distress HEENT: Head is atraumatic and normocephalic. Eyes: EOMI. There is no scleral icterus. Mouth: Mucosa is moist. Neck: Supple and nontender. There is no thyromegaly or adenopathy noted. Heart: Regular without murmurs gallops or ectopics Lungs: No wheezes or crackles are heard. Abdomen: Soft and nontender. No masses or guarding are noted. Extremities: The left leg is in an immobilizer. There is 1+ edema of the dorsum of the left foot and 0 to trace edema in the dorsum of the right foot. There is a surgical bandage on the left lateral femur area which I did not remove. She has minimal DJD changes of her hands. Neurologic: Mental status: She is talkative and a good historian. Cranial nerves: Smile is symmetric. Forehead wrinkles bilaterally. Tongue protrudes midline. EOMI. Motor: There is no pronator drift. Cerebellar: Finger to nose is intact bilaterally. Skin: Warm and dry
[2018-10-02] MEDS: *HR* OxyCODONE/APAP 7.5/325 TABLET PO PRN (18:09)
[2018-10-03 06:06] LABS: Basophils % 0.3 %; Eosinophils % 0.3 %; Hematocrit 28.1 % (35.3-44.9); Hemoglobin 9.4 g/dL (11.5-15.4); Immature Granulocytes % 0.6 % (0-4); Lymphocytes # 0.7 K/mcL (0.6-4.6); Lymphocytes % 20.5 %; Mean Corpuscular HGB Conc 33.5 g/dL (31.6-35.5); Mean Corpuscular Hemoglobin 34.2 pg (28.0-33.3); Mean Corpuscular Volume 102.2 fL (83.0-100.0); Mean Platelet Volume 10.7 fL (9.4-12.4); Monocytes # 0.4 K/mcL (0.0-1.3); Monocytes % 13.6 %; Neutrophils # 2.1 K/mcL (1.6-8.9); Platelet Count 130 K/mcL (140-400); Red Blood Count 2.75 M/mcL (3.82-4.97); Red Cell Distribution Width 18.4 % (11.5-14.5); Segmented Neutrophils % 64.7 %
[2018-10-03] MEDS: *HR* OxyCODONE/APAP 7.5/325 TABLET PO PRN ×2 (08:34→14:35)
[2018-10-03] MEDS: Multivit/Ca/Min/Fe/FA 1 TAB TABLET PO SCH (08:34)
[2018-10-03 08:43] LABS: % Iron Saturation 8 % (15-50); Iron 22 mcg/dL (50-170); Transferrin 207 mg/dL (203-362)
[2018-10-03 09:01] LABS: Ferritin 162 ng/mL (10-120)
[2018-10-03 09:07] LABS: Folate 20.7 ng/mL (3.0-16.0)
--- NOTE | 2018-10-03 16:19 | Internal Med Progress Note ---
Date of Encounter: 10/03/18 Time of Encounter: 16:13 - Assessment and plan (1) Femoral distal fracture Current Visit: Yes Status: Acute Assessment and plan: October 03. Status post plate and screw repair. Remaining NWB with PT and OT interventions. Lovenox for DVT prophylaxis. Qualifiers: Encounter type: initial encounter Fracture type: closed Fracture mo rphology: unspecified fracture morphology Laterality: left Qualified Code(s): S72.402A - Unspecified fracture of lower end of left femur, initial encounter for closed fracture (2) Pancytopenia Current Visit: Yes Status: Acute Assessment and plan: October 03. All cell lines show improvement. Anemia testing showed iron 22, transferrin saturation 8%, transferrin 207, ferritin 162, B12 222, and folate 20.7. She will receive a B12 injection and start oral B12 supplement. Also start ferrous sulfate with ascorbic acid in a.m. (3) Macrocytosis Current Visit: Yes Status: Acute Assessment and plan: October 03. TSH was normal at 4.181 on 07/23/2018. B12 low. Rx as per above. 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 As per oncologist Qualifiers: Laterality: left Qualified Code(s): C50.912 - Malignant neoplasm of unspecified site of left female breast; C79.51 - Secondary malignant neoplasm of bone - Subjective Interval history: October 03. She has no new complaints. - Constitutional Vitals: Temp Pulse Resp BP Pulse Ox 98.6 F 85 16 133/77 94 10/03/18 06:56 10/03/18 06:56 10/03/18 06:56 10/03/18 06:56 10/03/18 06:56 Exam: She is resting comfortably in bed and appears in no acute distress. Affect is bright and cheerful. I reviewed her medications and lab results. Internal Medicine: Result - Labs CBC & Chem 7: 10/03/18 05:40 Labs: Short CBC 10/03/18 Range/Units 05:40 WBC 3.2 L D (4.3-11.1) K/mcL Hgb 9.4 L (11.5-15.4) g/dL Hct 28.1 L (35.3-44.9) % Plt Count 130 L (140-400) K/mcL Neutrophils # 2.1 (1.6-8.9) K/mcL Consult Discharge Plan - Plan Referrals: Anna Beckett, AIRCRAFT LAUNCH AND RECOVERY TECHNICIAN [Primary Care Provider] - 1 week
[2018-10-03] MEDS ORDERED: Cyanocobalamin (B-12) 1,000 MCG/ML VIAL IM ONE (16:20)
[2018-10-04] MEDS: Ascorbic Acid 500 MG TABLET PO SCH (06:21)
[2018-10-04] MEDS: *HR* OxyCODONE/APAP 7.5/325 TABLET PO PRN ×2 (07:23→13:28)
[2018-10-04] MEDS: Multivit/Ca/Min/Fe/FA 1 TAB TABLET PO SCH (08:55)
[2018-10-04] MEDS: Cyanocobalamin (B-12) 1,000 MCG TABLET PO SCH (08:55)
[2018-10-05] MEDS: Ascorbic Acid 500 MG TABLET PO SCH (06:02)
[2018-10-05] MEDS: *HR* OxyCODONE/APAP 7.5/325 TABLET PO PRN ×2 (07:35→20:08)
[2018-10-05] MEDS: Cyanocobalamin (B-12) 1,000 MCG TABLET PO SCH (08:25)
[2018-10-05] MEDS: Multivit/Ca/Min/Fe/FA 1 TAB TABLET PO SCH (08:25)
[2018-10-06] MEDS: *HR* OxyCODONE/APAP 7.5/325 TABLET PO PRN ×2 (02:26→14:54)
[2018-10-06] MEDS: Ascorbic Acid 500 MG TABLET PO SCH (05:44)
[2018-10-06] MEDS: Multivit/Ca/Min/Fe/FA 1 TAB TABLET PO SCH (07:44)
[2018-10-06] MEDS: Cyanocobalamin (B-12) 1,000 MCG TABLET PO SCH (07:44)
--- NOTE | 2018-10-06 14:55 | Internal Med Progress Note ---
Date of Encounter: 10/06/18 Time of Encounter: 14:48 - Assessment and plan (1) Femoral distal fracture Current Visit: Yes Status: Acute Assessment and plan: October 03. Status post plate and screw repair. Remaining NWB with PT and OT interventions. Lovenox for DVT prophylaxis. October 05. Add scheduled Tylenol for pain control. Qualifiers: Encounter type: initial encounter Fracture type: closed Fracture morphology: unspecified fracture morphology Laterality: left Qualified Code(s): S72.402A - Unspecified fracture of lower end of left femur, initial encounter for closed fracture (2) Pancytopenia Current Visit: Yes Status: Acute Assessment and plan: October 03. All cell lines show improvement. Anemia testing showed iron 22, transferrin saturation 8%, transferrin 207, ferritin 162, B12 222, and folate 20.7. She will receive a B12 injection and start oral B12 supplement. Also start ferrous sulfate with ascorbic acid in a.m. October 05. Recheck labs in a.m. (3) Macrocytosis Current Visit: Yes Status: Acute Assessment and plan: October 03. TSH was normal at 4.181 on 07/23/2018. B12 low. Rx as per above. 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 As per oncologist Qualifiers: Laterality: left Qualified Code(s): C50.912 - Malignant neoplasm of unspecified site of left female breast; C79.51 - Secondary malignant neoplasm of bone - Subjective Interval history: October 03. She has no new complaints. October 06. She has no new complaints. She states her left leg pain is 6/10 intensity - Constitutional Vitals: Temp Pulse Resp BP Pulse Ox 98.5 F 71 18 124/71 93 10/06/18 07:59 10/06/18 07:59 10/06/18 07:59 10/06/18 07:59 10/06/18 07:59 Exam: She is resting comfortably in bed and appears in no acute distress. Her affect is overall cheerful. I reviewed her medications and lab results. Internal Medicine: Result - Labs CBC & Chem 7: 10/03/18 05:40 Consult Discharge Plan - Plan Referrals: Anna Beckett, DIRECTOR OF CONVENTION SERVICES [Primary Care Provider] - 1 week
[2018-10-06] MEDS: Acetaminophen 325 MG TABLET PO SCH (17:11)
[2018-10-07] MEDS: Acetaminophen 325 MG TABLET PO SCH ×5 (00:14→23:50)
[2018-10-07] MEDS: Ascorbic Acid 500 MG TABLET PO SCH (06:03)
[2018-10-07 06:18] LABS: Basophils % 0.8 %; Eosinophils % 0.5 %; Hematocrit 27.2 % (35.3-44.9); Immature Granulocytes % 0.8 % (0-4); Lymphocytes # 0.6 K/mcL (0.6-4.6); Mean Corpuscular HGB Conc 33.1 g/dL (31.6-35.5); Mean Corpuscular Volume 105.8 fL (83.0-100.0); Mean Platelet Volume 10.6 fL (9.4-12.4); Monocytes # 0.6 K/mcL (0.0-1.3); Monocytes % 15.4 %; Neutrophils # 2.5 K/mcL (1.6-8.9); Platelet Count 215 K/mcL (140-400); Red Blood Count 2.57 M/mcL (3.82-4.97); Red Cell Distribution Width 17.5 % (11.5-14.5); Segmented Neutrophils % 66.5 %
[2018-10-07 06:35] LABS: BUN/Creatinine Ratio 20 (6-26); Blood Urea Nitrogen 12 mg/dL (8-23); Calcium 8.3 mg/dL (8.6-10.3); Carbon Dioxide 30 mEq/L (23-29); Chloride 101 mEq/L (98-107); Glucose 99 mg/dL (70-105); Osmolality,Calculated 282 (280-300); Potassium 3.5 mEq/L (3.5-5.1); Sodium 136 mEq/L (136-145); eGFR For Non-African Americans > 60 (> 60)
[2018-10-07] MEDS: Cyanocobalamin (B-12) 1,000 MCG TABLET PO SCH (09:36)
[2018-10-07] MEDS: Multivit/Ca/Min/Fe/FA 1 TAB TABLET PO SCH (09:36)
[2018-10-08] MEDS: Ascorbic Acid 500 MG TABLET PO SCH (05:36)
[2018-10-08] MEDS: Acetaminophen 325 MG TABLET PO SCH ×3 (05:36→17:15)
[2018-10-08] MEDS: Cyanocobalamin (B-12) 1,000 MCG TABLET PO SCH (09:53)
[2018-10-08] MEDS: Multivit/Ca/Min/Fe/FA 1 TAB TABLET PO SCH (09:53)
[2018-10-08] MEDS: *HR* OxyCODONE/APAP 7.5/325 TABLET PO PRN (15:42)
[2018-10-09] MEDS: Acetaminophen 325 MG TABLET PO SCH ×4 (06:35→17:01)
[2018-10-09] MEDS: Ascorbic Acid 500 MG TABLET PO SCH (06:36)
[2018-10-09] MEDS: Cyanocobalamin (B-12) 1,000 MCG TABLET PO SCH (08:48)
[2018-10-09] MEDS: Multivit/Ca/Min/Fe/FA 1 TAB TABLET PO SCH (08:48)
--- NOTE | 2018-10-09 18:31 | Internal Med Progress Note ---
Date of Encounter: 10/09/18 Time of Encounter: 18:24 - Assessment and plan (1) Femoral distal fracture Current Visit: Yes Status: Acute Assessment and plan: October 03. Status post plate and screw repair. Remaining NWB with PT and OT interventions. Lovenox for DVT prophylaxis. October 05. Add scheduled Tylenol for pain control. Qualifiers: Encounter type: initial encounter Fracture type: closed Fracture morphology: unspecified fracture morphology Laterality: left Qualified Code(s): S72.402A - Unspecified fracture of lower end of left femur, initial encounter for closed fracture (2) Pancytopenia Current Visit: Yes Status: Acute Assessment and plan: October 03. All cell lines show improvement. Anemia testing showed iron 22, transferrin saturation 8%, transferrin 207, ferritin 162, B12 222, and folate 20.7. She will receive a B12 injection and start oral B12 supplement. Also start ferrous sulfate with ascorbic acid in a.m. October 05. Recheck labs in a.m. October 09. WBC improved to near normal. Thrombocytopenia resolved. Hemoglobin minimally decreased at 9.0. Continue ferrous sulfate with ascorbic acid and oral B12 supplement. (3) Macrocytosis Current Visit: Yes Status: Acute Assessment and plan: October 03. TSH was normal at 4.181 on 07/23/2018. B12 low. Rx as per above. October 09. Continue supplemental B12. 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 As per oncologist Qualifiers: Laterality: left Qualified Code(s): C50.912 - Malignant neoplasm of unspecified site of left female breast; C79.51 - Secondary malignant neoplasm of bone - Subjective Interval history: October 03. She has no new complaints. October 06. She has no new complaints. She states her left leg pain is 6/10 inte nsity October 09. She has no new complaints. She saw the orthopedist staff today at an office visit. - Constitutional Vitals: Temp Pulse Resp BP Pulse Ox 98.6 F 76 18 117/68 92 10/09/18 06:48 10/09/18 06:48 10/09/18 06:48 10/09/18 06:48 10/09/18 06:48 Exam: Is resting comfortably in bed and appears in no acute distress. Her affect is bright and cheerful. Extremities show trace pitting edema bilaterally. I reviewed her medications and lab results. Internal Medicine: Result - Labs CBC & Chem 7: 10/07/18 06:00 10/07/18 06:00 Consult Discharge Plan - Plan Referrals: Anna Beckett, BORING MACHINE OPERATOR HORIZONTAL [Primary Care Provider] - 1 week
[2018-10-09] MEDS: *HR* OxyCODONE/APAP 7.5/325 TABLET PO PRN (20:40)
[2018-10-10] MEDS: Acetaminophen 325 MG TABLET PO SCH ×4 (06:24→17:21)
[2018-10-10] MEDS: Ascorbic Acid 500 MG TABLET PO SCH (06:25)
[2018-10-10] MEDS: Multivit/Ca/Min/Fe/FA 1 TAB TABLET PO SCH (08:11)
[2018-10-10] MEDS: Cyanocobalamin (B-12) 1,000 MCG TABLET PO SCH (08:11)
[2018-10-10] MEDS: *HR* OxyCODONE/APAP 7.5/325 TABLET PO PRN ×2 (13:28→21:35)
[2018-10-11] MEDS: Ascorbic Acid 500 MG TABLET PO SCH (05:04)
[2018-10-11] MEDS: Acetaminophen 325 MG TABLET PO SCH ×4 (05:04→18:03)
[2018-10-11] MEDS: Multivit/Ca/Min/Fe/FA 1 TAB TABLET PO SCH (10:51)
[2018-10-11] MEDS: Cyanocobalamin (B-12) 1,000 MCG TABLET PO SCH (10:52)
[2018-10-11] MEDS: *HR* OxyCODONE/APAP 7.5/325 TABLET PO PRN (11:00)
[2018-10-12] MEDS: Acetaminophen 325 MG TABLET PO SCH ×4 (00:31→17:39)
[2018-10-12] MEDS: *HR* OxyCODONE/APAP 7.5/325 TABLET PO PRN ×2 (05:49→20:33)
[2018-10-12] MEDS: Ascorbic Acid 500 MG TABLET PO SCH (05:49)
[2018-10-12 06:42] LABS: Basophils % 0.6 %; Eosinophils % 0.6 %; Hematocrit 28.1 % (35.3-44.9); Hemoglobin 9.1 g/dL (11.5-15.4); Immature Granulocytes % 0.6 % (0-4); Lymphocytes # 0.6 K/mcL (0.6-4.6); Lymphocytes % 11.6 %; Mean Corpuscular HGB Conc 32.4 g/dL (31.6-35.5); Mean Corpuscular Hemoglobin 33.8 pg (28.0-33.3); Mean Corpuscular Volume 104.5 fL (83.0-100.0); Monocytes # 0.6 K/mcL (0.0-1.3); Monocytes % 12.6 %; Neutrophils # 3.8 K/mcL (1.6-8.9); Platelet Count 345 K/mcL (140-400); Red Blood Count 2.69 M/mcL (3.82-4.97); Red Cell Distribution Width 17.5 % (11.5-14.5)
[2018-10-12] MEDS: Multivit/Ca/Min/Fe/FA 1 TAB TABLET PO SCH (08:39)
[2018-10-12] MEDS: Cyanocobalamin (B-12) 1,000 MCG TABLET PO SCH (08:42)
--- NOTE | 2018-10-12 11:38 | Internal Med Progress Note ---
Date of Encounter: 10/12/18 Time of Encounter: 11:30 - Assessment and plan (1) Femoral distal fracture Current Visit: No Status: Acute Assessment and plan: October 03. Status post plate and screw repair. Remaining NWB with PT and OT interventions. Lovenox for DVT prophylaxis. October 05. Add scheduled Tylenol for pain control. Qualifiers: Encounter type: initial encounter Fracture type: closed Fracture morphology: unspecified fracture morphology Laterality: left Qualified Code(s): S72.402A - Unspecified fracture of lower end of left femur, initial encounter for closed fracture (2) Pancytopenia Current Visit: No Status: Acute Assessment and plan: October 03. All cell lines show improvement. Anemia testing showed iron 22, transferrin saturation 8%, transferrin 207, ferritin 162, B12 222, and folate 20.7. She will receive a B12 injection and start oral B12 supplement. Also start ferrous sulfate with ascorbic acid in a.m. October 05. Recheck labs in a.m. October 09. WBC improved to near normal. Thrombocytopenia resolved. Hemoglobin minimally decreased at 9.0. Continue ferrous sulfate with ascorbic acid and oral B12 supplement. October 12. WBC and platelet count now normal. Hemoglobin stable at 9.1. Continue ferrous sulfate, ascorbic acid, and oral B12 supplement and monitor. (3) Macrocytosis Current Visit: No Status: Acute Assessment and plan: October 03. TSH was normal at 4.181 on 07/23/2018. B12 low. Rx as per above. October 09. Continue supplemental B12. 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 As per oncologist Qualifiers: Laterality: left Qualified Code(s): C50.912 - Malignant neoplasm of unspecified site of left female breast; C79.51 - Secondary malignant neoplasm of bone - Subjective Interval history: October 03. She has no new complaints. October 06. She has no new complaints. She states her left leg pain is 6/10 intensity October 09. She has no new complaints. She saw the orthopedist staff today at an office visit. October 12. She has no new complaints. - Constitutional Vitals: Temp Pulse Resp BP Pulse Ox 97.6 F 79 17 148/72 91 10/12/18 06:48 10/12/18 06:48 10/12/18 06:48 10/12/18 06:48 10/12/18 06:48 Exam: She is resting comfortably in bed and appears in no acute distress. She is emotionally labile and became tearful a few times during conversation. Right leg shows 0 to trace edema and left lower leg shows trace to 1+ edema of the dorsum of the foot and lower leg. I reviewed her medications and lab results. Internal Medicine: Result - Labs CBC & Chem 7: 10/12/18 05:45 10/07/18 06:00 Labs: Short CBC 10/12/18 Range/Units 05:45 WBC 5.1 (4.3-11.1) K/mcL Hgb 9.1 L (11.5-15.4) g/dL Hct 28.1 L (35.3-44.9) % Plt Count 345 D (140-400) K/mcL Neutrophils # 3.8 (1.6-8.9) K/mcL Consult Discharge Plan - Plan Referrals: Anna Beckett, HOSPICE AIDE [Primary Care Provider] - 1 week
[2018-10-13] MEDS: Acetaminophen 325 MG TABLET PO SCH ×4 (06:03→17:21)
[2018-10-13] MEDS: Ascorbic Acid 500 MG TABLET PO SCH (06:03)
[2018-10-13] MEDS: Cyanocobalamin (B-12) 1,000 MCG TABLET PO SCH (08:15)
[2018-10-13] MEDS: Multivit/Ca/Min/Fe/FA 1 TAB TABLET PO SCH (08:15)
[2018-10-13] MEDS: *HR* OxyCODONE/APAP 7.5/325 TABLET PO PRN ×2 (11:32→22:41)
[2018-10-14] MEDS: Acetaminophen 325 MG TABLET PO SCH ×5 (00:05→17:33)
[2018-10-14] MEDS: Ascorbic Acid 500 MG TABLET PO SCH (06:04)
[2018-10-14] MEDS: Multivit/Ca/Min/Fe/FA 1 TAB TABLET PO SCH (08:27)
[2018-10-14] MEDS: *HR* OxyCODONE/APAP 7.5/325 TABLET PO PRN ×3 (08:27→21:46)
[2018-10-14] MEDS: Cyanocobalamin (B-12) 1,000 MCG TABLET PO SCH (08:28)
--- NOTE | 2018-10-14 11:52 | Internal Med Progress Note ---
Date of Encounter: 10/14/18 Time of Encounter: 11:40 - Assessment and plan (1) Femoral distal fracture Current Visit: No Status: Acute Assessment and plan: October 03. Status post plate and screw repair. Remaining NWB with PT and OT interventions. October 05. Add scheduled Tylenol for pain control. October 14. Continue Tylenol for pain control. Continue PT and OT intervention. Continue Pradaxa for known DVT. Qualifiers: Encounter type: initial encounter Fracture type: closed Fracture morphology: unspecified fracture morphology Laterality: left Qualified Code(s): S72.402A - Unspecified fracture of lower end of left femur, initial encounter for closed fracture (2) Pancytopenia Current Visit: No Status: Acute Assessment and plan: October 03. All cell lines show improvement. Anemia testing showed iron 22, transferrin saturation 8%, transferrin 207, ferritin 162, B12 222, and folate 20.7. She will receive a B12 injection and start oral B12 supplement. Also start ferrous sulfate with ascorbic acid in a.m. October 05. Recheck labs in a.m. October 09. WBC improved to near normal. Thrombocytopenia resolved. Hemoglobin minimally decreased at 9.0. Continue ferrous sulfate with ascorbic acid and oral B12 supplement. October 12. WBC and platelet count now normal. Hemoglobin stable at 9.1. Continue ferrous sulfate, ascorbic acid, and oral B12 supplement and monitor. October 14. Continue to monitor labs periodically. (3) Macrocytosis Current Visit: No Status: Acute Assessment and plan: October 03. TSH was normal at 4.181 on 07/23/2018. B12 low. Rx as per above. October 09. Continue supplemental B12. 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 As per oncologist Qualifiers: Laterality: left Qualified Code(s): C50.912 - Malignant neoplasm of unspecified site of left female breast; C79.51 - Secondary malignant neoplasm of bone - Subjective Interval history: October 03. She has no new complaints. October 06. She has no new complaints. She states her left leg pain is 6/10 intensity October 09. She has no new complaints. She saw the orthopedist staff today at an office visit. October 12. She has no new complaints. October 14. She has no new complaints. - Constitutional Vitals: Temp Pulse Resp BP Pulse Ox 98.2 F 73 13 134/64 93 10/14/18 06:43 10/14/18 06:43 10/14/18 06:43 10/14/18 06:43 10/14/18 06:43 Exam: She is resting comfortable in a chair at bedside. The left knee brace is in place. Her affect is bright and cheerful. I reviewed her medications and lab results. Internal Medicine: Result - Labs CBC & Chem 7: 10/12/18 05:45 10/07/18 06:00 Consult Discharge Plan - Plan Referrals: Anna Beckett, SPECIAL EDUCATION PARA PROFESSIONAL [Primary Care Provider] - 1 week
[2018-10-15] MEDS: Acetaminophen 325 MG TABLET PO SCH ×4 (00:55→17:03)
[2018-10-15] MEDS: Ascorbic Acid 500 MG TABLET PO SCH (05:46)
[2018-10-15] MEDS: Multivit/Ca/Min/Fe/FA 1 TAB TABLET PO SCH (07:51)
[2018-10-15] MEDS: Cyanocobalamin (B-12) 1,000 MCG TABLET PO SCH (07:51)
[2018-10-15] MEDS: *HR* OxyCODONE/APAP 7.5/325 TABLET PO PRN (20:34)
[2018-10-16] MEDS: Acetaminophen 325 MG TABLET PO SCH ×4 (00:59→17:28)
[2018-10-16] MEDS: *HR* OxyCODONE/APAP 7.5/325 TABLET PO PRN ×4 (02:57→22:33)
[2018-10-16] MEDS: Ascorbic Acid 500 MG TABLET PO SCH (05:48)
[2018-10-16] MEDS: Multivit/Ca/Min/Fe/FA 1 TAB TABLET PO SCH (08:44)
[2018-10-16] MEDS: Cyanocobalamin (B-12) 1,000 MCG TABLET PO SCH (08:44)
--- NOTE | 2018-10-16 11:40 | Internal Med Progress Note ---
Date of Encounter: 10/16/18 Time of Encounter: 07:35 - Assessment and plan (1) Femoral distal fracture Current Visit: No Status: Acute Assessment and plan: October 03. Status post plate and screw repair. Remaining NWB with PT and OT interventions. October 05. Add scheduled Tylenol for pain control. October 14. Continue Tylenol for pain control. Continue PT and OT intervention. Continue Pradaxa for known DVT. Qualifiers: Encounter type: initial encounter Fracture type: closed Fracture morphology: unspecified fracture morphology Laterality: left Qualified Code(s): S72.402A - Unspecified fracture of lower end of left femur, initial encounter for closed fracture (2) Pancytopenia Current Visit: No Status: Acute Assessment and plan: October 03. All cell lines show improvement. Anemia testing showed iron 22, transferrin saturation 8%, transferrin 207, ferritin 162, B12 222, and folate 20.7. She will receive a B12 injection and start oral B12 supplement. Also start ferrous sulfate with ascorbic acid in a.m. October 05. Recheck labs in a.m. October 09. WBC improved to near normal. Thrombocytopenia resolved. Hemoglobin minimally decreased at 9.0. Continue ferrous sulfate with ascorbic acid and oral B12 supplement. October 12. WBC and platelet count now normal. Hemoglobin stable at 9.1. Continue ferrous sulfate, ascorbic acid, and oral B12 supplement and monitor. October 14. Continue to monitor labs periodically. October 16. Recheck labs in a.m. (3) Macrocytosis Current Visit: No Status: Acute Assessment and plan: October 03. TSH was normal at 4.181 on 07/23/2018. B12 low. Rx as per above. October 09. Continue supplemental B12. 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 As per oncologist Qualifiers: Laterality: left Qualified Code(s): C50.912 - Malignant neoplasm of unspecified site of left female breast; C79.51 - Secondary malignant neoplasm of bone (6) Urinary frequency Current Visit: Yes Status: Acute Assessment and plan: October 16. Will check UA C/S and postvoid residual. - Subjective Interval history: October 03. She has no new complaints. October 06. She has no new complaints. She states her left leg pain is 6/10 intensity October 09. She has no new complaints. She saw the orthopedist staff today at an office visit. October 12. She has no new complaints. October 14. She has no new complaints. October 16. She reports urinary frequency and is often incontinent. - Constitutional Vitals: Temp Pulse Resp BP Pulse Ox 98.0 F 67 18 138/71 93 10/16/18 07:06 10/16/18 07:06 10/16/18 07:06 10/16/18 07:06 10/16/18 07:06 Exam: She is sitting in a chair at bedside resting comfortably. The left leg brace/immobilizer remains in place. Her affect is overall cheerful. I reviewed her medications and lab results. Internal Medicine: Result - Labs CBC & Chem 7: 10/12/18 05:45 10/07/18 06:00 Consult Discharge Plan - Plan Referrals: Anna Beckett, SPA ASSISTANT MANAGER [Primary Care Provider] - 1 week
[2018-10-16 14:30] LABS: Bilirubin,Urine Negative (Negative); Blood,Urine Trace-intact (Negative); Clarity,Urine Cloudy (Clear); Color,Urine Yellow (Yellow); Glucose,Urine (UA) Normal (Normal); Ketones,Urine Trace mg/dL (Negative); Leukocyte Esterase,Urine Moderate (Negative); Nitrite,Urine Negative (Negative); PH,Urine 5.5 pH Units (5.0-8.0); Protein,Urine 30 mg/dL (Neg-Trace); Specific Gravity,Urine 1.015 (1.010-1.025); Urobilinogen,Urine Normal (Normal)
[2018-10-16 14:41] LABS: Mucus,Urine Few (Few); Squamous Epithelial Cell,Urine Few per lpf (None-Few); Transitional Epi Cells,Urine Few per hpf (None-Few); WBC,Urine 30-50 per hpf (0-3)
[2018-10-16 14:42] LABS: Bacteria,Urine Many per hpf (None-Few)
[2018-10-16] MEDS: Lactobacillus 1 EACH CAP.SPRINK PO SCH (20:12)
[2018-10-17] MEDS: Acetaminophen 325 MG TABLET PO SCH ×4 (00:59→17:07)
[2018-10-17] MEDS: Ascorbic Acid 500 MG TABLET PO SCH (05:52)
[2018-10-17 06:47] LABS: Basophils % 0.4 %; Eosinophils % 0.6 %; Hematocrit 27.9 % (35.3-44.9); Immature Granulocytes % 0.4 % (0-4); Lymphocytes # 0.6 K/mcL (0.6-4.6); Lymphocytes % 11.3 %; Mean Corpuscular HGB Conc 32.3 g/dL (31.6-35.5); Mean Corpuscular Hemoglobin 33.7 pg (28.0-33.3); Mean Corpuscular Volume 104.5 fL (83.0-100.0); Mean Platelet Volume 9.7 fL (9.4-12.4); Monocytes # 0.8 K/mcL (0.0-1.3); Neutrophils # 3.9 K/mcL (1.6-8.9); Platelet Count 420 K/mcL (140-400); Red Blood Count 2.67 M/mcL (3.82-4.97); Red Cell Distribution Width 17.2 % (11.5-14.5); Segmented Neutrophils % 72.3 %
[2018-10-17 06:58] LABS: Alanine Aminotransferase 29 Units/L (7-52); Albumin/Globulin Ratio 0.9 (1.1-2.2); Alkaline Phosphatase 196 Units/L (34-104); Aspartate Amino Transferase 27 Units/L (13-39); BUN/Creatinine Ratio 21 (6-26); Bilirubin,Total 0.8 mg/dL (0.3-1.0); Blood Urea Nitrogen 11 mg/dL (8-23); Calcium 8.8 mg/dL (8.6-10.3); Carbon Dioxide 29 mEq/L (23-29); Chloride 98 mEq/L (98-107); Globulin 3.5 g/dL (2.4-3.5); Glucose 94 mg/dL (70-105); Osmolality,Calculated 277 (280-300); Sodium 134 mEq/L (136-145); Total Protein 6.5 g/dL (6.4-8.9); eGFR For Non-African Americans > 60 (> 60)
[2018-10-17] MEDS: Multivit/Ca/Min/Fe/FA 1 TAB TABLET PO SCH (08:53)
[2018-10-17] MEDS: Lactobacillus 1 EACH CAP.SPRINK PO SCH ×2 (08:53→20:58)
[2018-10-17] MEDS: Cyanocobalamin (B-12) 1,000 MCG TABLET PO SCH (08:53)
[2018-10-17] MEDS: *HR* OxyCODONE/APAP 7.5/325 TABLET PO PRN (21:02)
[2018-10-18] MEDS: Acetaminophen 325 MG TABLET PO SCH ×4 (00:30→18:37)
[2018-10-18] MEDS: *HR* OxyCODONE/APAP 7.5/325 TABLET PO PRN ×4 (06:05→20:51)
[2018-10-18] MEDS: Ascorbic Acid 500 MG TABLET PO SCH (06:05)
[2018-10-18] MEDS: Cyanocobalamin (B-12) 1,000 MCG TABLET PO SCH (10:38)
[2018-10-18] MEDS: Lactobacillus 1 EACH CAP.SPRINK PO SCH ×2 (10:38→20:51)
[2018-10-18] MEDS: Multivit/Ca/Min/Fe/FA 1 TAB TABLET PO SCH (10:38)
[2018-10-19] MEDS: Acetaminophen 325 MG TABLET PO SCH ×4 (00:42→17:36)
[2018-10-19] MEDS: Ascorbic Acid 500 MG TABLET PO SCH (06:50)
[2018-10-19] MEDS: Lactobacillus 1 EACH CAP.SPRINK PO SCH (07:36)
[2018-10-19] MEDS: *HR* OxyCODONE/APAP 7.5/325 TABLET PO PRN ×3 (07:36→20:55)
[2018-10-19] MEDS: Multivit/Ca/Min/Fe/FA 1 TAB TABLET PO SCH (07:36)
[2018-10-19] MEDS: Cyanocobalamin (B-12) 1,000 MCG TABLET PO SCH (07:36)
--- NOTE | 2018-10-19 16:22 | Internal Med Progress Note ---
Date of Encounter: 10/19/18 Time of Encounter: 16:12 - Assessment and plan (1) Femoral distal fracture Current Visit: No Status: Acute Assessment and plan: October 03. Status post plate and screw repair. Remaining NWB with PT and OT interventions. October 05. Add scheduled Tylenol for pain control. October 14. Continue Tylenol for pain control. Continue PT and OT intervention. Continue Pradaxa for known DVT. Qualifiers: Encounter type: initial encounter Fracture type: closed Fracture morphology: unspecified fracture morphology Laterality: left Qualified Code(s): S72.402A - Unspecified fracture of lower end of left femur, initial encounter for closed fracture (2) Pancytopenia Current Visit: No Status: Acute Assessment and plan: October 03. All cell lines show improvement. Anemia testing showed iron 22, transferrin saturation 8%, transferrin 207, ferritin 162, B12 222, and folate 20.7. She will receive a B12 injection and start oral B12 supplement. Also start ferrous sulfate with ascorbic acid in a.m. October 05. Recheck labs in a.m. October 09. WBC improved to near normal. Thrombocytopenia resolved. Hemoglobin minimally decreased at 9.0. Continue ferrous sulfate with ascorbic acid and oral B12 supplement. October 12. WBC and platelet count now normal. Hemoglobin stable at 9.1. Continue ferrous sulfate, ascorbic acid, and oral B12 supplement and monitor. October 14. Continue to monitor labs periodically. October 16. Recheck labs in a.m. October 19. Hemoglobin stable at 9.0 on 10/19/2018. Platelet count has risen to 420 K. WBC remains normal at 5.3K. Continue to monitor periodically. (3) Macrocytosis Current Visit: No Status: Acute Assessment and plan: October 03. TSH was normal at 4.181 on 07/23/2018. B12 low. Rx as per above. October 09. Continue supplemental B12. 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 Continue Pradaxa Qualifiers: Chronicity: chronic Qualified Code(s): I82.532 - Chronic embolism and t hrombosis of left popliteal vein (5) Breast cancer metastasized to bone Current Visit: No Status: Chronic Assessment and plan: October 03. As per oncologist Qualifiers: Laterality: left Qualified Code(s): C50.912 - Malignant neoplasm of unspecified site of left female breast; C79.51 - Secondary malignant neoplasm of bone (6) Urinary frequency Current Visit: Yes Status: Acute Assessment and plan: October 16. Will check UA C/S and postvoid residual. October 19. Urine culture returned showing no growth. Discontinue Cipro and lactobacillus. - Subjective Interval history: October 03. She has no new complaints. October 06. She has no new complaints. She states her left leg pain is 6/10 intensity October 09. She has no new complaints. She saw the orthopedist staff today at an office visit. October 12. She has no new complaints. October 14. She has no new complaints. October 16. She reports urinary frequency and is often incontinent. October 19. She has no new complaints. She now has Oh catheter due to inadequate bladder emptying. - Constitutional Vitals: Temp Pulse Resp BP Pulse Ox 97.9 F 75 16 133/77 94 10/19/18 07:20 10/19/18 07:20 10/19/18 07:20 10/19/18 07:20 10/19/18 07:20 Exam: She is sitting in a chair at bedside resting comfortably. Her affect is cheerful. I reviewed her medications and lab results. Internal Medicine: Result - Labs CBC & Chem 7: 10/17/18 05:39 10/17/18 05:39 Consult Discharge Plan - Plan Referrals: Anna Beckett, DATABASE REPORT WRITER [Primary Care Provider] - 1 week
[2018-10-20] MEDS: Acetaminophen 325 MG TABLET PO SCH ×4 (00:37→16:41)
[2018-10-20] MEDS: *HR* OxyCODONE/APAP 7.5/325 TABLET PO PRN ×3 (06:48→21:05)
[2018-10-20] MEDS: Ascorbic Acid 500 MG TABLET PO SCH (06:49)
[2018-10-20] MEDS: Multivit/Ca/Min/Fe/FA 1 TAB TABLET PO SCH (08:36)
[2018-10-20] MEDS: Cyanocobalamin (B-12) 1,000 MCG TABLET PO SCH (08:37)
[2018-10-21] MEDS: Acetaminophen 325 MG TABLET PO SCH ×5 (00:48→23:19)
[2018-10-21] MEDS: Ascorbic Acid 500 MG TABLET PO SCH (06:05)
[2018-10-21] MEDS: Multivit/Ca/Min/Fe/FA 1 TAB TABLET PO SCH (08:08)
[2018-10-21] MEDS: *HR* OxyCODONE/APAP 7.5/325 TABLET PO PRN ×3 (08:09→23:16)
[2018-10-21] MEDS: Cyanocobalamin (B-12) 1,000 MCG TABLET PO SCH (08:09)
--- NOTE | 2018-10-21 12:12 | Internal Med Progress Note ---
Date of Encounter: 10/21/18 Time of Encounter: 12:00 - Assessment and plan (1) Femoral distal fracture Current Visit: No Status: Acute Assessment and plan: October 03. Status post plate and screw repair. Remaining NWB with PT and OT interventions. October 05. Add scheduled Tylenol for pain control. October 14. Continue Tylenol for pain control. Continue PT and OT intervention. Continue Pradaxa for known DVT. October 21. Continue present interventions. Social service will begin process to transition to local SNF for ongoing care needs. Qualifiers: Encounter type: initial encounter Fracture type: closed Fracture morphology: unspecified fracture morphology Laterality: left Qualified Code(s): S72.402A - Unspecified fracture of lower end of left femur, initial encounter for closed fracture (2) Pancytopenia Current Visit: No Status: Acute Assessment and plan: October 03. All cell lines show improvement. Anemia testing showed iron 22, transferrin saturation 8%, transferrin 207, ferritin 162, B12 222, and folate 20.7. She will receive a B12 injection and start oral B12 supplement. Also start ferrous sulfate with ascorbic acid in a.m. October 05. Recheck labs in a.m. October 09. WBC improved to near normal. Thrombocytopenia resolved. Hemoglobin minimally decreased at 9.0. Continue ferrous sulfate with ascorbic acid and oral B12 supplement. October 12. WBC and platelet count now normal. Hemoglobin stable at 9.1. Continue ferrous sulfate, ascorbic acid, and oral B12 supplement and monitor. October 14. Continue to monitor labs periodically. October 16. Recheck labs in a.m. October 19. Hemoglobin stable at 9.0 on 10/17/2018. Platelet count has risen to 420 K. WBC remains normal at 5.3K. Continue to monitor periodically. (3) Macrocytosis Current Visit: No Status: Acute Assessment and plan: October 03. TSH was normal at 4.181 on 07/23/2018. B12 low. Rx as per above. October 09. Continue supplemental B12. 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 As per oncologist Qualifiers: Laterality: left Qualified Code(s): C50.912 - Malignant neoplasm of unspecified site of left female breast; C79.51 - Secondary malignant neoplasm of bone (6) Urinary frequency Current Visit: Yes Status: Acute Assessment and plan: October 16. Will check UA C/S and postvoid residual. October 19. Urine culture returned showing no growth. Discontinue Cipro and lactobacillus. - Subjective Interval history: October 03. She has no new complaints. October 06. She has no new complaints. She states her left leg pain is 6/10 intensity October 09. She has no new complaints. She saw the orthopedist staff today at an office visit. October 12. She has no new complaints. October 14. She has no new complaints. October 16. She reports urinary frequency and is often incontinent. October 19. She has no new complaints. She now has Oh catheter due to inadequate bladder emptying. October 21. She has no new complaints. She thinks now she should go to a local SNF for ongoing rehabilitation therapy before attempting to go home. - Constitutional Vitals: Temp Pulse Resp BP Pulse Ox 98.3 F 75 16 136/65 96 10/21/18 06:57 10/21/18 06:57 10/21/18 06:57 10/21/18 06:57 10/21/18 06:57 Exam: She is resting comfortably in a chair at bedside and appears in no acute distress. Her extremities show 0 to trace edema bilaterally. Her affect is cheerful. I reviewed her medications and lab results. Internal Medicine: Result - Labs CBC & Chem 7: 10/17/18 05:39 10/17/18 05:39 Consult Discharge Plan - Plan Referrals: Anna Beckett, MANAGER PATIENT [Primary Care Provider] - 1 week
[2018-10-22] MEDS: Acetaminophen 325 MG TABLET PO SCH ×4 (06:32→23:36)
[2018-10-22] MEDS: Ascorbic Acid 500 MG TABLET PO SCH (06:32)
[2018-10-22] MEDS: *HR* OxyCODONE/APAP 7.5/325 TABLET PO PRN ×2 (10:07→20:51)
[2018-10-22] MEDS: Multivit/Ca/Min/Fe/FA 1 TAB TABLET PO SCH (10:09)
[2018-10-22] MEDS: Cyanocobalamin (B-12) 1,000 MCG TABLET PO SCH (10:10)
[2018-10-23] MEDS: Ascorbic Acid 500 MG TABLET PO SCH (06:38)
[2018-10-23] MEDS: Acetaminophen 325 MG TABLET PO SCH ×3 (06:38→17:12)
[2018-10-23] MEDS: Multivit/Ca/Min/Fe/FA 1 TAB TABLET PO SCH (08:32)
[2018-10-23] MEDS: Cyanocobalamin (B-12) 1,000 MCG TABLET PO SCH (08:33)
[2018-10-23] MEDS: *HR* OxyCODONE/APAP 7.5/325 TABLET PO PRN (19:48)
[2018-10-24] MEDS: Acetaminophen 325 MG TABLET PO SCH ×4 (00:59→17:38)
[2018-10-24] MEDS: *HR* OxyCODONE/APAP 7.5/325 TABLET PO PRN ×3 (04:25→19:35)
[2018-10-24] MEDS: Ascorbic Acid 500 MG TABLET PO SCH (06:14)
[2018-10-24] MEDS: Cyanocobalamin (B-12) 1,000 MCG TABLET PO SCH (07:26)
[2018-10-24] MEDS: Multivit/Ca/Min/Fe/FA 1 TAB TABLET PO SCH (07:27)
[2018-10-24 08:31] LABS: Basophils % 0.4 %; Eosinophils # 0.1 K/mcL (0.0-0.6); Eosinophils % 1.1 %; Hematocrit 28.3 % (35.3-44.9); Hemoglobin 8.9 g/dL (11.5-15.4); Immature Granulocytes % 0.4 % (0-4); Lymphocytes # 0.6 K/mcL (0.6-4.6); Lymphocytes % 11.4 %; Mean Corpuscular HGB Conc 31.4 g/dL (31.6-35.5); Mean Corpuscular Volume 104.8 fL (83.0-100.0); Mean Platelet Volume 9.4 fL (9.4-12.4); Monocytes # 0.7 K/mcL (0.0-1.3); Neutrophils # 4.1 K/mcL (1.6-8.9); Platelet Count 395 K/mcL (140-400); Red Cell Distribution Width 16.9 % (11.5-14.5); Segmented Neutrophils % 74.7 %
[2018-10-24 09:17] LABS: BUN/Creatinine Ratio 22 (6-26); Blood Urea Nitrogen 13 mg/dL (8-23); Calcium 8.6 mg/dL (8.6-10.3); Carbon Dioxide 30 mEq/L (23-29); Chloride 97 mEq/L (98-107); Glucose 150 mg/dL (70-105); Osmolality,Calculated 279 (280-300); Potassium 4.3 mEq/L (3.5-5.1); Sodium 133 mEq/L (136-145); eGFR For Non-African Americans > 60 (> 60)
--- NOTE | 2018-10-24 12:39 | Internal Med Progress Note ---
Date of Encounter: 10/24/18 Time of Encounter: 12:30 - Assessment and plan (1) Femoral distal fracture Current Visit: No Status: Acute Assessment and plan: October 03. Status post plate and screw repair. Remaining NWB with PT and OT interventions. October 05. Add scheduled Tylenol for pain control. October 14. Continue Tylenol for pain control. Continue PT and OT intervention. Continue Pradaxa for known DVT. October 21. Continue present interventions. Social service will begin process to transition to local SNF for ongoing care needs. October 24. Continue analgesics and therapy with orthopedic follow-up 11/11/2018. Qualifiers: Encounter type: initial encounter Fracture type: closed Fracture morphology: unspecified fracture morphology Laterality: left Qualified Code(s): S72.402A - Unspecified fracture of lower end of left femur, initial encounter for closed fracture (2) Pancytopenia Current Visit: No Status: Acute Assessment and plan: October 03. All cell lines show improvement. Anemia testing showed iron 22, transferrin saturation 8%, transferrin 207, ferritin 162, B12 222, and folate 20.7. She will receive a B12 injection and start oral B12 supplement. Also start ferrous sulfate with ascorbic acid in a.m. October 05. Recheck labs in a.m. October 09. WBC improved to near normal. Thrombocytopenia resolved. Hemoglobin minimally decreased at 9.0. Continue ferrous sulfate with ascorbic acid and oral B12 supplement. October 12. WBC and platelet count now normal. Hemoglobin stable at 9.1. Continue ferrous sulfate, ascorbic acid, and oral B12 supplement and monitor. October 14. Continue to monitor labs periodically. October 16. Recheck labs in a.m. October 19. Hemoglobin stable at 9.0 on 10/17/2018. Platelet count has risen to 420 K. WBC remains normal at 5.3K. Continue to monitor periodically. (3) Macrocytosis Current Visit: No Status: Acute (4) Deep vein thrombosis (DVT) of popliteal vein of left lower extremity Current Visit: No Status: Chronic Assessment and plan: . 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 As per oncologist October 24. Possible restart chemotherapy has been discussed. No plans for transfer to SNF at this time. Qualifiers: Laterality: left Qualified Code(s): C50.912 - Malignant neoplasm of unspecified site of left female breast; C79.51 - Secondary malignant neoplasm of bone (6) Urinary frequency Current Visit: Yes Status: Acute Assessment and plan: October 16. Will check UA C/S and postvoid residual. October 19. Urine culture returned showing no growth. Discontinue Cipro and lactobacillus. - Subjective Interval history: October 03. She has no new complaints. October 06. She has no new complaints. She states her left leg pain is 6/10 intensity October 09. She has no new complaints. She saw the orthopedist staff today at an office visit. October 12. She has no new complaints. October 14. She has no new complaints. October 16. She reports urinary frequency and is often incontinent. October 19. She has no new complaints. She now has Oh catheter due to inadequate bladder emptying. October 21. She has no new complaints. She thinks now she should go to a local SNF for ongoing rehabilitation therapy before attempting to go home. October 24. She has no new complaints. She saw the orthopedist staff earlier today. It has been reported to nursing staff that consideration for restarting chemotherapy is being given by oncology. If this is correct she will not be transferred to SNF at this time. - Constitutional Vitals: Temp Pulse Resp BP Pulse Ox 98.6 F 79 18 133/71 97 10/24/18 06:47 10/24/18 07:23 10/24/18 06:47 10/24/18 07:23 10/24/18 07:23 Exam: She is resting comfortably in bed and appears in no acute distress. Her affect is generally cheerful but she becomes almost tearful intermittently as she talks. Extremities show 0 to trace edema. I reviewed her medications and lab results. Internal Medicine: Result - Labs CBC & Chem 7: 10/24/18 08:06 10/24/18 08:06 Labs: Short CBC 10/24/18 Range/Units 08:06 WBC 5.4 (4.3-11.1) K/mcL Hgb 8.9 L (11.5-15.4) g/dL Hct 28.3 L (35.3-44.9) % Plt Count 395 (140-400) K/mcL Neutrophils # 4.1 (1.6-8.9) K/mcL BMP 10/24/18 08:06 Sodium 133 L Potassium 4.3 Chloride 97 L Carbon Dioxide 30 H BUN 13 Creatinine 0.58 L Glucose 150 H Calcium 8.6 Consult Discharge Plan - Plan Referrals: Andrew Giordano MD [Partnered Physician] - 1 week (DECEMBER 10, 2018 @ 3:45 pm) Anna Beckett CNP [Primary Care Provider] - 1 week
[2018-10-25] MEDS: Acetaminophen 325 MG TABLET PO SCH ×4 (02:18→17:24)
[2018-10-25] MEDS: Ascorbic Acid 500 MG TABLET PO SCH (05:38)
[2018-10-25] MEDS: Cyanocobalamin (B-12) 1,000 MCG TABLET PO SCH (08:15)
[2018-10-25] MEDS: Multivit/Ca/Min/Fe/FA 1 TAB TABLET PO SCH (08:15)
[2018-10-25] MEDS: *HR* OxyCODONE/APAP 7.5/325 TABLET PO PRN ×2 (15:20→20:44)
[2018-10-26] MEDS: Acetaminophen 325 MG TABLET PO SCH ×4 (00:25→17:12)
[2018-10-26] MEDS: Ascorbic Acid 500 MG TABLET PO SCH (06:05)
[2018-10-26] MEDS: Cyanocobalamin (B-12) 1,000 MCG TABLET PO SCH (08:11)
[2018-10-26] MEDS: Multivit/Ca/Min/Fe/FA 1 TAB TABLET PO SCH (08:11)
[2018-10-26] MEDS: *HR* OxyCODONE/APAP 7.5/325 TABLET PO PRN ×2 (08:22→17:12)
[2018-10-27] MEDS: Acetaminophen 325 MG TABLET PO SCH ×4 (00:59→17:54)
[2018-10-27] MEDS: Ascorbic Acid 500 MG TABLET PO SCH (05:47)
[2018-10-27] MEDS: Multivit/Ca/Min/Fe/FA 1 TAB TABLET PO SCH (08:18)
[2018-10-27] MEDS: Cyanocobalamin (B-12) 1,000 MCG TABLET PO SCH (08:18)
[2018-10-27] MEDS: *HR* OxyCODONE/APAP 7.5/325 TABLET PO PRN ×2 (08:27→20:13)
--- NOTE | 2018-10-27 15:34 | Internal Med Progress Note ---
Date of Encounter: 10/27/18 Time of Encounter: 15:25 - Assessment and plan (1) Femoral distal fracture Current Visit: No Status: Acute Assessment and plan: October 03. Status post plate and screw repair. Remaining NWB with PT and OT interventions. October 05. Add scheduled Tylenol for pain control. October 14. Continue Tylenol for pain control. Continue PT and OT intervention. Continue Pradaxa for known DVT. October 21. Continue present interventions. Social service will begin process to transition to local SNF for ongoing care needs. October 24. Continue analgesics and therapy with orthopedic follow-up 11/11/2018. Qualifiers: Encounter type: initial encounter Fracture type: closed Fracture morphology: unspecified fracture morphology Laterality: left Qualified Code(s): S72.402A - Unspecified fracture of lower end of left femur, initial encounter for closed fracture (2) Pancytopenia Current Visit: No Status: Acute Assessment and plan: October 03. All cell lines show improvement. Anemia testing showed iron 22, transferrin saturation 8%, transferrin 207, ferritin 162, B12 222, and folate 20.7. She will receive a B12 injection and start oral B12 supplement. Also start ferrous sulfate with ascorbic acid in a.m. October 05. Recheck labs in a.m. October 09. WBC improved to near normal. Thrombocytopenia resolved. Hemoglobin minimally decreased at 9.0. Continue ferrous sulfate with ascorbic acid and oral B12 supplement. October 12. WBC and platelet count now normal. Hemoglobin stable at 9.1. Continue ferrous sulfate, ascorbic acid, and oral B12 supplement and monitor. October 14. Continue to monitor labs periodically. October 16. Recheck labs in a.m. October 19. Hemoglobin stable at 9.0 on 10/17/2018. Platelet count has risen to 420 K. WBC remains normal at 5.3K. Continue to monitor periodically. (3) Macrocytosis Current Visit: No Status: Acute Assessment and plan: October 03. TSH was normal at 4.181 on 07/23/2018. B12 low. Rx as per above. October 09. Continue supplemental B12. 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 As per oncologist October 24. Possible restart chemotherapy has been discussed. No plans for transfer to SNF at this time. October 27. Multiple unsuccessful attempts have been made to contact [facility] to discuss possibly restarting chemotherapy. Qualifiers: Laterality: left Qualified Code(s): C50.912 - Malignant neoplasm of unspecified site of left female breast; C79.51 - Secondary malignant neoplasm of bone (6) Urinary frequency Current Visit: Yes Status: Acute Assessment and plan: October 16. Will check UA C/S and postvoid residual. October 19. Urine culture returned showing no growth. Discontinue Cipro and lactobacillus. - Subjective Interval history: October 03. She has no new complaints. October 06. She has no new complaints. She states her left leg pain is 6/10 intensity October 09. She has no new complaints. She saw the orthopedist staff today at an office visit. October 12. She has no new complaints. October 14. She has no new complaints. October 16. She reports urinary frequency and is often incontinent. October 19. She has no new complaints. She now has Oh catheter due to inadequate bladder emptying. October 21. She has no new complaints. She thinks now she should go to a local SNF for ongoing rehabilitation therapy before attempting to go home. October 24. She has no new complaints. She saw the orthopedist staff earlier today. It has been reported to nursing staff that consideration for restarting chemotherapy is being given by oncology. If this is correct she will not be transferred to SNF at this time. October 27. She has no new complaints. - Constitutional Vitals: Temp Pulse Resp BP Pulse Ox 98.3 F 78 16 144/84 95 10/27/18 07:02 10/27/18 07:02 10/27/18 07:02 10/27/18 07:02 10/27/18 07:02 Exam: She is resting comfortably in a chair at bedside. Her feet are elevated. There is 0 to trace edema of her lower legs bilaterally. Her affect is bright and cheerful. I reviewed her medications and past lab results. Internal Medicine: Result - Labs CBC & Chem 7: 10/24/18 08:06 10/24/18 08:06 Consult Discharge Plan - Plan Referrals: Andrew Giordano MD [Partnered Physician] - 1 week (DECEMBER 10, 2018 @ 3:45 pm) Anna Beckett CNP [Primary Care Provider] - 1 week
[2018-10-28] MEDS: Acetaminophen 325 MG TABLET PO SCH ×4 (02:56→18:11)
[2018-10-28] MEDS: *HR* OxyCODONE/APAP 7.5/325 TABLET PO PRN ×3 (03:05→20:54)
[2018-10-28] MEDS: Ascorbic Acid 500 MG TABLET PO SCH (06:23)
[2018-10-28] MEDS: Multivit/Ca/Min/Fe/FA 1 TAB TABLET PO SCH (10:52)
[2018-10-28] MEDS: Cyanocobalamin (B-12) 1,000 MCG TABLET PO SCH (10:53)
[2018-10-29] MEDS: Acetaminophen 325 MG TABLET PO SCH ×4 (06:26→18:29)
[2018-10-29] MEDS: Ascorbic Acid 500 MG TABLET PO SCH (06:27)
[2018-10-29] MEDS: *HR* OxyCODONE/APAP 7.5/325 TABLET PO PRN ×2 (08:26→16:57)
[2018-10-29] MEDS: Multivit/Ca/Min/Fe/FA 1 TAB TABLET PO SCH (08:26)
[2018-10-29] MEDS: Cyanocobalamin (B-12) 1,000 MCG TABLET PO SCH (08:26)
[2018-10-30] MEDS: Acetaminophen 325 MG TABLET PO SCH ×4 (06:09→18:38)
[2018-10-30] MEDS: Ascorbic Acid 500 MG TABLET PO SCH (06:09)
[2018-10-30] MEDS: Cyanocobalamin (B-12) 1,000 MCG TABLET PO SCH (08:51)
[2018-10-30] MEDS: Multivit/Ca/Min/Fe/FA 1 TAB TABLET PO SCH (08:52)
[2018-10-30] MEDS: *HR* OxyCODONE/APAP 7.5/325 TABLET PO PRN ×2 (14:43→21:07)
[2018-10-31] MEDS: Acetaminophen 325 MG TABLET PO SCH ×4 (00:59→17:43)
[2018-10-31] MEDS: Ascorbic Acid 500 MG TABLET PO SCH (06:29)
[2018-10-31] MEDS: Multivit/Ca/Min/Fe/FA 1 TAB TABLET PO SCH (08:05)
[2018-10-31] MEDS: Cyanocobalamin (B-12) 1,000 MCG TABLET PO SCH (08:05)
--- NOTE | 2018-10-31 14:21 | Internal Med Progress Note ---
Date of Encounter: 10/31/18 Time of Encounter: 14:10 - Assessment and plan (1) Femoral distal fracture Current Visit: No Status: Acute Assessment and plan: October 03. Status post plate and screw repair. Remaining NWB with PT and OT interventions. October 05. Add scheduled Tylenol for pain control. October 14. Continue Tylenol for pain control. Continue PT and OT intervention. Continue Pradaxa for known DVT. October 21. Continue present interventions. Social service will begin process to transition to local SNF for ongoing care needs. October 24. Continue analgesics and therapy with orthopedic follow-up 11/11/2018. Qualifiers: Encounter type: initial encounter Fracture type: closed Fracture morphology: unspecified fracture morphology Laterality: left Qualified Code(s): S72.402A - Unspecified fracture of lower end of left femur, initial encounter for closed fracture (2) Pancytopenia Current Visit: No Status: Acute Assessment and plan: October 03. All cell lines show improvement. Anemia testing showed iron 22, transferrin saturation 8%, transferrin 207, ferritin 162, B12 222, and folate 20.7. She will receive a B12 injection and start oral B12 supplement. Also start ferrous sulfate with ascorbic acid in a.m. October 05. Recheck labs in a.m. October 09. WBC improved to near normal. Thrombocytopenia resolved. Hemoglobin minimally decreased at 9.0. Continue ferrous sulfate with ascorbic acid and oral B12 supplement. October 12. WBC and platelet count now normal. Hemoglobin stable at 9.1. Continue ferrous sulfate, ascorbic acid, and oral B12 supplement and monitor. October 14. Continue to monitor labs periodically. October 16. Recheck labs in a.m. October 19. Hemoglobin stable at 9.0 on 10/17/2018. Platelet count has risen to 420 K. WBC remains normal at 5.3K. Continue to monitor periodically. October 31. Labs stable. Continue to monitor periodically. (3) Macrocytosis Current Visit: No Status: Acute Assessment and plan: October 03. TSH was normal at 4.181 on 07/23/2018. B12 low. Rx as per above. October 09. Continue supplemental B12. 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 As per oncologist October 24. Possible restart chemotherapy has been discussed. No plans for transfer to SNF at this time. October 27. Multiple unsuccessful attempts have been made to contact [facility] to discuss possibly restarting chemotherapy. October 31. She will have a visit at [facility] November 05 2018. Staff at [facility] has been told she will receive a chemotherapy treatment at that time and meet with the oncologist for further planning. Qualifiers: Laterality: left Qualified Code(s): C50.912 - Malignant neoplasm of unspecified site of left female breast; C79.51 - Secondary malignant neoplasm of bone (6) Urinary frequency Current Visit: Yes Status: Acute Assessment and plan: October 16. Will check UA C/S and postvoid residual. October 19. Urine culture returned showing no growth. Discontinue Cipro and lactobacillus. - Subjective Interval history: October 03. She has no new complaints. October 06. She has no new complaints. She states her left leg pain is 6/10 inte nsity October 09. She has no new complaints. She saw the orthopedist staff today at an office visit. October 12. She has no new complaints. October 14. She has no new complaints. October 16. She reports urinary frequency and is often incontinent. October 19. She has no new complaints. She now has Oh catheter due to inadequate bladder emptying. October 21. She has no new complaints. She thinks now she should go to a local SNF for ongoing rehabilitation therapy before attempting to go home. October 24. She has no new complaints. She saw the orthopedist staff earlier today. It has been reported to nursing staff that consideration for restarting chemotherapy is being given by oncology. If this is correct she will not be transferred to SNF at this time. October 27. She has no new complaints. October 31. She has no new complaints. - Constitutional Vitals: Temp Pulse Resp BP Pulse Ox 97.7 F 73 15 106/55 93 10/31/18 09:00 10/31/18 09:00 10/31/18 09:00 10/31/18 09:00 10/31/18 09:00 Exam: She is resting comfortably in a chair at bedside. Her feet are elevated. There is no pitting edema of her lower legs. I reviewed her medications and lab results. Internal Medicine: Result - Labs CBC & Chem 7: 10/24/18 08:06 10/24/18 08:06 Consult Discharge Plan - Plan Referrals: Andrew Giordano MD [Partnered Physician] - 1 week (DECEMBER 10, 2018 @ 3:45 pm) Anna Beckett CNP [Primary Care Provider] - 1 week
[2018-10-31] MEDS: *HR* OxyCODONE/APAP 7.5/325 TABLET PO PRN (15:38)
[2018-11-01] MEDS: Acetaminophen 325 MG TABLET PO SCH ×4 (00:40→17:02)
[2018-11-01] MEDS: *HR* OxyCODONE/APAP 7.5/325 TABLET PO PRN ×4 (03:05→20:35)
[2018-11-01] MEDS: Ascorbic Acid 500 MG TABLET PO SCH (06:31)
[2018-11-01] MEDS: Multivit/Ca/Min/Fe/FA 1 TAB TABLET PO SCH (08:02)
[2018-11-01] MEDS: Cyanocobalamin (B-12) 1,000 MCG TABLET PO SCH (08:02)
[2018-11-02] MEDS: Acetaminophen 325 MG TABLET PO SCH ×4 (00:56→18:23)
[2018-11-02] MEDS: Ascorbic Acid 500 MG TABLET PO SCH (06:36)
[2018-11-02] MEDS: Multivit/Ca/Min/Fe/FA 1 TAB TABLET PO SCH (08:45)
[2018-11-02] MEDS: Cyanocobalamin (B-12) 1,000 MCG TABLET PO SCH (08:45)
[2018-11-02] MEDS: *HR* OxyCODONE/APAP 7.5/325 TABLET PO PRN ×2 (08:45→18:23)
[2018-11-03] MEDS: *HR* OxyCODONE/APAP 7.5/325 TABLET PO PRN ×3 (00:41→21:59)
[2018-11-03] MEDS: Acetaminophen 325 MG TABLET PO SCH ×4 (00:41→17:28)
[2018-11-03] MEDS: Ascorbic Acid 500 MG TABLET PO SCH (06:41)
[2018-11-03] MEDS: Cyanocobalamin (B-12) 1,000 MCG TABLET PO SCH (08:07)
[2018-11-03] MEDS: Multivit/Ca/Min/Fe/FA 1 TAB TABLET PO SCH (08:07)
--- NOTE | 2018-11-03 11:10 | Internal Med Progress Note ---
Date of Encounter: 11/03/18 Time of Encounter: 11:00 - Assessment and plan (1) Femoral distal fracture Current Visit: No Status: Acute Assessment and plan: October 03. Status post plate and screw repair. Remaining NWB with PT and OT interventions. October 05. Add scheduled Tylenol for pain control. October 14. Continue Tylenol for pain control. Continue PT and OT intervention. Continue Pradaxa for known DVT. October 21. Continue present interventions. Social service will begin process to transition to local SNF for ongoing care needs. October 24. Continue analgesics and therapy with orthopedic follow-up 11/11/2018. Qualifiers: Encounter type: initial encounter Fracture type: closed Fracture morphology: unspecified fracture morphology Laterality: left Qualified Code(s): S72.402A - Unspecified fracture of lower end of left femur, initial encounter for closed fracture (2) Pancytopenia Current Visit: No Status: Acute Assessment and plan: October 03. All cell lines show improvement. Anemia testing showed iron 22, transferrin saturation 8%, transferrin 207, ferritin 162, B12 222, and folate 20.7. She will receive a B12 injection and start oral B12 supplement. Also start ferrous sulfate with ascorbic acid in a.m. October 05. Recheck labs in a.m. October 09. WBC improved to near normal. Thrombocytopenia resolved. Hemoglobin minimally decreased at 9.0. Continue ferrous sulfate with ascorbic acid and oral B12 supplement. October 12. WBC and platelet count now normal. Hemoglobin stable at 9.1. Continue ferrous sulfate, ascorbic acid, and oral B12 supplement and monitor. October 14. Continue to monitor labs periodically. October 16. Recheck labs in a.m. October 19. Hemoglobin stable at 9.0 on 10/17/2018. Platelet count has risen to 420 K. WBC remains normal at 5.3K. Continue to monitor periodically. October 31. Labs stable. Continue to monitor periodically. (3) Macrocytosis Current Visit: No Status: Acute Assessment and plan: October 03. TSH was normal at 4.181 on 07/23/2018. B12 low. Rx as per above. October 09. Continue supplemental B12. 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 As per oncologist October 24. Possible restart chemotherapy has been discussed. No plans for transfer to SNF at this time. October 27. Multiple unsuccessful attempts have been made to contact [facility] to discuss possibly restarting chemotherapy. October 31. She will have a visit at [place]., November 05 2018. Staff at [facility] has been told she will receive a chemotherapy treatment at that time and meet with the oncologist for further planning. Qualifiers: Laterality: left Qualified Code(s): C50.912 - Malignant neoplasm of unspecified site of left female breast; C79.51 - Secondary malignant neoplasm of bone (6) Urinary frequency Current Visit: Yes Status: Acute Assessment and plan: October 16. Will check UA C/S and postvoid residual. October 19. Urine culture returned showing no growth. Discontinue Cipro and lactobacillus. November 03. Give Urecholine and discontinue Oh. - Subjective Interval history: October 03. She has no new complaints. October 06. She has no new complaints. She states her left leg pain is 6/10 intensity October 09. She has no new complaints. She saw the orthopedist staff today at an office visit. October 12. She has no new complaints. October 14. She has no new complaints. October 16. She reports urinary frequency and is often incontinent. October 19. She has no new complaints. She now has Oh catheter due to inadequate bladder emptying. October 21. She has no new complaints. She thinks now she should go to a local SNF for ongoing rehabilitation therapy before attempting to go home. October 24. She has no new complaints. She saw the orthopedist staff earlier today. It has been reported to nursing staff that consideration for restarting chemotherapy is being given by oncology. If this is correct she will not be transferred to SNF at this time. October 27. She has no new complaints. October 31. She has no new complaints. November 03. She has no new complaints. She states her day pass yesterday went well. - Constitutional Vitals: Temp Pulse Resp BP Pulse Ox 97.5 F L 69 16 137/67 95 11/03/18 08:24 11/03/18 08:24 11/03/18 08:24 11/03/18 08:24 11/03/18 08:24 Exam: She is sitting in a chair at bedside resting comfortably. Her feet are elevated. Extremities show no edema. Her affect is bright and cheerful. I reviewed her medications and lab results. Internal Medicine: Result - Labs CBC & Chem 7: 10/24/18 08:06 10/24/18 08:06 Consult Discharge Plan - Plan Referrals: Andrew Giordano MD [Partnered Physician] - 1 week (DECEMBER 10, 2018 @ 3:45 pm) Anna Beckett CNP [Primary Care Provider] - 1 week
[2018-11-04] MEDS: *HR* OxyCODONE/APAP 7.5/325 TABLET PO PRN ×2 (03:24→20:10)
[2018-11-04] MEDS: Ascorbic Acid 500 MG TABLET PO SCH (05:54)
[2018-11-04] MEDS: Acetaminophen 325 MG TABLET PO SCH ×4 (05:54→17:15)
[2018-11-04 06:44] LABS: Basophils % 0.2 %; Eosinophils # 0.1 K/mcL (0.0-0.6); Eosinophils % 1.2 %; Hematocrit 29.1 % (35.3-44.9); Hemoglobin 9.3 g/dL (11.5-15.4); Immature Granulocytes % 0.6 % (0-4); Lymphocytes # 0.7 K/mcL (0.6-4.6); Lymphocytes % 14.2 %; Mean Corpuscular Volume 103.2 fL (83.0-100.0); Mean Platelet Volume 9.8 fL (9.4-12.4); Monocytes # 0.6 K/mcL (0.0-1.3); Monocytes % 11.8 %; Neutrophils # 3.7 K/mcL (1.6-8.9); Platelet Count 290 K/mcL (140-400); Red Blood Count 2.82 M/mcL (3.82-4.97); Red Cell Distribution Width 16.5 % (11.5-14.5)
[2018-11-04 07:06] LABS: BUN/Creatinine Ratio 23 (6-26); Blood Urea Nitrogen 11 mg/dL (8-23); Calcium 8.6 mg/dL (8.6-10.3); Carbon Dioxide 29 mEq/L (23-29); Chloride 99 mEq/L (98-107); Glucose 93 mg/dL (70-105); Osmolality,Calculated 279 (280-300); Potassium 3.7 mEq/L (3.5-5.1); Sodium 135 mEq/L (136-145); eGFR For Non-African Americans > 60 (> 60)
[2018-11-04] MEDS: Multivit/Ca/Min/Fe/FA 1 TAB TABLET PO SCH (08:16)
[2018-11-04] MEDS: Cyanocobalamin (B-12) 1,000 MCG TABLET PO SCH (08:17)
[2018-11-05] MEDS: Acetaminophen 325 MG TABLET PO SCH ×5 (00:09→17:41)
[2018-11-05] MEDS: Ascorbic Acid 500 MG TABLET PO SCH (05:51)
[2018-11-05] MEDS: Multivit/Ca/Min/Fe/FA 1 TAB TABLET PO SCH (10:16)
[2018-11-05] MEDS: Cyanocobalamin (B-12) 1,000 MCG TABLET PO SCH (10:17)
[2018-11-05] MEDS: *HR* OxyCODONE/APAP 7.5/325 TABLET PO PRN (20:36)
[2018-11-06] MEDS: Acetaminophen 325 MG TABLET PO SCH ×4 (00:18→16:42)
[2018-11-06] MEDS: *HR* OxyCODONE/APAP 7.5/325 TABLET PO PRN ×2 (02:11→21:07)
[2018-11-06] MEDS: Ascorbic Acid 500 MG TABLET PO SCH (06:35)
[2018-11-06] MEDS: Cyanocobalamin (B-12) 1,000 MCG TABLET PO SCH (08:52)
[2018-11-06] MEDS: Multivit/Ca/Min/Fe/FA 1 TAB TABLET PO SCH (08:52)
[2018-11-06] MEDS: PALBOCICLIB 100 MG PO SCH (16:42)
--- NOTE | 2018-11-06 17:29 | Internal Med Progress Note ---
Date of Encounter: 11/06/18 Time of Encounter: 17:20 - Assessment and plan (1) Femoral distal fracture Current Visit: No Status: Acute Assessment and plan: October 03. Status post plate and screw repair. Remaining NWB with PT and OT interventions. October 05. Add scheduled Tylenol for pain control. October 14. Continue Tylenol for pain control. Continue PT and OT intervention. Continue Pradaxa for known DVT. October 21. Continue present interventions. Social service will begin process to transition to local SNF for ongoing care needs. October 24. Continue analgesics and therapy with orthopedic follow-up 11/11/2018. Qualifiers: Encounter type: initial encounter Fracture type: closed Fracture morphology: unspecified fracture morphology Laterality: left Qualified Code(s): S72.402A - Unspecified fracture of lower end of left femur, initial encounter for closed fracture (2) Pancytopenia Current Visit: No Status: Acute Assessment and plan: October 03. All cell lines show improvement. Anemia testing showed iron 22, transferrin saturation 8%, transferrin 207, ferritin 162, B12 222, and folate 20.7. She will receive a B12 injection and start oral B12 supplement. Also start ferrous sulfate with ascorbic acid in a.m. October 05. Recheck labs in a.m. October 09. WBC improved to near normal. Thrombocytopenia resolved. Hemoglobin minimally decreased at 9.0. Continue ferrous sulfate with ascorbic acid and oral B12 supplement. October 12. WBC and platelet count now normal. Hemoglobin stable at 9.1. Continue ferrous sulfate, ascorbic acid, and oral B12 supplement and monitor. October 14. Continue to monitor labs periodically. October 16. Recheck labs in a.m. October 19. Hemoglobin stable at 9.0 on 10/17/2018. Platelet count has risen to 420 K. WBC remains normal at 5.3K. Continue to monitor periodically. October 31. Labs stable. Continue to monitor periodically. (3) Macrocytosis Current Visit: No Status: Acute Assessment and plan: October 03. TSH was normal at 4.181 on 07/23/2018. B12 low. Rx as per above. October 09. Continue supplemental B12. 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 As per oncologist October 24. Possible restart chemotherapy has been discussed. No plans for transfer to SNF at this time. October 27. Multiple unsuccessful attempts have been made to contact [facility] to discuss possibly restarting chemotherapy. October 31. She will have a visit at [facility] November 05 2018. Staff at [facility] has been told she will receive a chemotherapy treatment at that time and meet with the oncologist for further planning. November 06. Oncology has started her on Faslodex every 4 weeks and Zometa every 12 weeks. Follow-up appointment with Dr. Giordano is 12/03/2018 when both agents will be given.. She will have CT of chest/abdomen/pelvis and nuclear medicine medicine whole-body bone scan prior to the 12/03/2018 visit. Qualifiers: Laterality: left Qualified Code(s): C50.912 - Malignant neoplasm of unspecified site of left female breast; C79.51 - Secondary malignant neoplasm of bone (6) Urinary frequency Current Visit: Yes Status: Acute Assessment and plan: October 16. Will check UA C/S and postvoid residual. October 19. Urine culture returned showing no growth. Discontinue Cipro and lacto bacillus. November 03. Give Urecholine and discontinue Oh. November 06. Postvoid residual will be done. - Subjective Interval history: October 03. She has no new complaints. October 06. She has no new complaints. She states her left leg pain is 6/10 intensity October 09. She has no new complaints. She saw the orthopedist staff today at an office visit. October 12. She has no new complaints. October 14. She has no new complaints. October 16. She reports urinary frequency and is often incontinent. October 19. She has no new complaints. She now has Oh catheter due to inadequate bladder emptying. October 21. She has no new complaints. She thinks now she should go to a local SNF for ongoing rehabilitation therapy before attempting to go home. October 24. She has no new complaints. She saw the orthopedist staff earlier today. It has been reported to nursing staff that consideration for restarting chemotherapy is being given by oncology. If this is correct she will not be transferred to SNF at this time. October 27. She has no new complaints. October 31. She has no new complaints. November 03. She has no new complaints. She states her day pass yesterday went well. November 06. She has no new complaints. She states she was incontinent of urine approximately one hour ago. - Constitutional Vitals: Temp Pulse Resp BP Pulse Ox 98.0 F 75 16 120/62 94 11/06/18 07:18 11/06/18 07:18 11/06/18 07:18 11/06/18 07:18 11/06/18 07:18 Exam: She is resting comfortably in a chair at bedside and appears in no acute distress. Her affect is bright and cheerful. I reviewed her medications and lab results. Internal Medicine: Result - Labs CBC & Chem 7: 11/04/18 05:45 11/04/18 05:45 Consult Discharge Plan - Plan Referrals: Andrew Giordano MD [Partnered Physician] - 1 week (DECEMBER 10, 2018 @ 3:45 pm) Anna Beckett CNP [Primary Care Provider] - 1 week
[2018-11-07] MEDS: Acetaminophen 325 MG TABLET PO SCH ×4 (00:39→17:10)
[2018-11-07] MEDS: *HR* OxyCODONE/APAP 7.5/325 TABLET PO PRN ×3 (03:27→21:50)
[2018-11-07] MEDS: Ascorbic Acid 500 MG TABLET PO SCH (06:47)
[2018-11-07] MEDS: Cyanocobalamin (B-12) 1,000 MCG TABLET PO SCH (08:17)
[2018-11-07] MEDS: Multivit/Ca/Min/Fe/FA 1 TAB TABLET PO SCH (08:17)
[2018-11-07] MEDS: PALBOCICLIB 100 MG PO SCH (08:19)
[2018-11-08] MEDS: Acetaminophen 325 MG TABLET PO SCH ×4 (07:00→17:19)
[2018-11-08] MEDS: Ascorbic Acid 500 MG TABLET PO SCH (07:00)
[2018-11-08] MEDS: Cyanocobalamin (B-12) 1,000 MCG TABLET PO SCH (09:02)
[2018-11-08] MEDS: Multivit/Ca/Min/Fe/FA 1 TAB TABLET PO SCH (09:02)
[2018-11-08] MEDS: *HR* OxyCODONE/APAP 7.5/325 TABLET PO PRN ×2 (09:02→20:42)
[2018-11-08] MEDS: PALBOCICLIB 100 MG PO SCH (09:13)
[2018-11-09] MEDS: Acetaminophen 325 MG TABLET PO SCH ×4 (00:02→18:32)
[2018-11-09] MEDS: Ascorbic Acid 500 MG TABLET PO SCH (06:01)
[2018-11-09] MEDS: PALBOCICLIB 100 MG PO SCH (07:51)
[2018-11-09] MEDS: Cyanocobalamin (B-12) 1,000 MCG TABLET PO SCH (07:52)
[2018-11-09] MEDS: Multivit/Ca/Min/Fe/FA 1 TAB TABLET PO SCH (07:52)
[2018-11-09] MEDS: *HR* OxyCODONE/APAP 7.5/325 TABLET PO PRN (18:30)
[2018-11-10] MEDS: Acetaminophen 325 MG TABLET PO SCH ×5 (00:52→17:42)
[2018-11-10] MEDS: Ascorbic Acid 500 MG TABLET PO SCH (06:00)
[2018-11-10] MEDS: *HR* OxyCODONE/APAP 7.5/325 TABLET PO PRN ×2 (06:00→20:18)
[2018-11-10] MEDS: PALBOCICLIB 100 MG PO SCH (07:54)
[2018-11-10] MEDS: Cyanocobalamin (B-12) 1,000 MCG TABLET PO SCH (07:55)
[2018-11-10] MEDS: Multivit/Ca/Min/Fe/FA 1 TAB TABLET PO SCH (07:56)
--- NOTE | 2018-11-10 15:54 | Internal Med Progress Note ---
Date of Encounter: 11/10/18 Time of Encounter: 15:45 - Assessment and plan (1) Femoral distal fracture Current Visit: No Status: Acute Assessment and plan: October 03. Status post plate and screw repair. Remaining NWB with PT and OT interventions. October 05. Add scheduled Tylenol for pain control. October 14. Continue Tylenol for pain control. Continue PT and OT intervention. Continue Pradaxa for known DVT. October 21. Continue present interventions. Social service will begin process to transition to local SNF for ongoing care needs. October 24. Continue analgesics and therapy with orthopedic follow-up 11/11/2018. Qualifiers: Encounter type: initial encounter Fracture type: closed Fracture morphology: unspecified fracture morphology Laterality: left Qualified Code(s): S72.402A - Unspecified fracture of lower end of left femur, initial encounter for closed fracture (2) Pancytopenia Current Visit: No Status: Acute Assessment and plan: October 03. All cell lines show improvement. Anemia testing showed iron 22, transferrin saturation 8%, transferrin 207, ferritin 162, B12 222, and folate 20.7. She will receive a B12 injection and start oral B12 supplement. Also start ferrous sulfate with ascorbic acid in a.m. October 05. Recheck labs in a.m. October 09. WBC improved to near normal. Thrombocytopenia resolved. Hemoglobin minimally decreased at 9.0. Continue ferrous sulfate with ascorbic acid and oral B12 supplement. October 12. WBC and platelet count now normal. Hemoglobin stable at 9.1. Continue ferrous sulfate, ascorbic acid, and oral B12 supplement and monitor. October 14. Continue to monitor labs periodically. October 16. Recheck labs in a.m. October 19. Hemoglobin stable at 9.0 on 10/17/2018. Platelet count has risen to 420 K. WBC remains normal at 5.3K. Continue to monitor periodically. October 31. Labs stable. Continue to monitor periodically. (3) Macrocytosis Current Visit: No Status: Acute Assessment and plan: October 03. TSH was normal at 4.181 on 07/23/2018. B12 low. Rx as per above. October 09. Continue supplemental B12. 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 As per oncologist October 24. Possible restart chemotherapy has been discussed. No plans for transfer to SNF at this time. October 27. Multiple unsuccessful attempts have been made to contact [facility] to discuss possibly restarting chemotherapy. October 31. She will have a visit at [facility] November 05 2018. Staff at [facility] has been told she will receive a chemotherapy treatment at that time and meet with the oncologist for further planning. November 06. Oncology has started her on Faslodex every 4 weeks and Zometa every 12 weeks. Follow-up appointment with Dr. Giordano is 12/03/2018 when both agents will be given.. She will have CT of chest/abdomen/pelvis and nuclear medicine medicine whole-body bone scan prior to the 12/03/2018 visit. Qualifiers: Laterality: left Qualified Code(s): C50.912 - Malignant neoplasm of unspecified site of left female breast; C79.51 - Secondary malignant neoplasm of bone (6) Urinary frequency Current Visit: Yes Status: Acute Assessment and plan: October 16. Will check UA C/S and postvoid residual. October 19. Urine culture returned showing no growth. Discontinue Cipro and lacto bacillus. November 03. Give Urecholine and discontinue Oh. November 06. Postvoid residual will be done. - Subjective Interval history: October 03. She has no new complaints. October 06. She has no new complaints. She states her left leg pain is 6/10 intensity October 09. She has no new complaints. She saw the orthopedist staff today at an office visit. October 12. She has no new complaints. October 14. She has no new complaints. October 16. She reports urinary frequency and is often incontinent. October 19. She has no new complaints. She now has Oh catheter due to inadequate bladder emptying. October 21. She has no new complaints. She thinks now she should go to a local SNF for ongoing rehabilitation therapy before attempting to go home. October 24. She has no new complaints. She saw the orthopedist staff earlier today. It has been reported to nursing staff that consideration for restarting chemotherapy is being given by oncology. If this is correct she will not be transferred to SNF at this time. October 27. She has no new complaints. October 31. She has no new complaints. November 03. She has no new complaints. She states her day pass yesterday went well. November 06. She has no new complaints. She states she was incontinent of urine approximately one hour ago. November 10. She has no new complaints. She reports her day pass went well yesterday including no difficulty with car transfers. - Constitutional Vitals: Temp Pulse Resp BP Pulse Ox 97.5 F L 83 15 151/78 95 11/10/18 07:12 11/10/18 07:12 11/09/18 19:32 11/10/18 07:12 11/10/18 07:12 Exam: She is resting comfortably in a recliner chair at bedside. Her feet are elevated. There is no extremity edema. I reviewed her medications and lab results. Internal Medicine: Result - Labs CBC & Chem 7: 11/04/18 05:45 11/04/18 05:45 Consult Discharge Plan - Plan Referrals: Andrew Giordano MD [Partnered Physician] - 1 week (DECEMBER 10, 2018 @ 3:45 pm) Anna Beckett CNP [Primary Care Provider] - 1 week
[2018-11-11] MEDS: Acetaminophen 325 MG TABLET PO SCH ×5 (02:06→23:12)
[2018-11-11] MEDS: Ascorbic Acid 500 MG TABLET PO SCH (06:49)
[2018-11-11] MEDS: Multivit/Ca/Min/Fe/FA 1 TAB TABLET PO SCH (08:08)
[2018-11-11] MEDS: *HR* OxyCODONE/APAP 7.5/325 TABLET PO PRN ×2 (08:08→20:59)
[2018-11-11] MEDS: Cyanocobalamin (B-12) 1,000 MCG TABLET PO SCH (08:09)
[2018-11-11] MEDS: PALBOCICLIB 100 MG PO SCH (08:13)
[2018-11-12] MEDS: Ascorbic Acid 500 MG TABLET PO SCH (06:46)
[2018-11-12] MEDS: Acetaminophen 325 MG TABLET PO SCH ×3 (06:47→17:31)
[2018-11-12] MEDS: Multivit/Ca/Min/Fe/FA 1 TAB TABLET PO SCH (10:31)
[2018-11-12] MEDS: Cyanocobalamin (B-12) 1,000 MCG TABLET PO SCH (10:31)
[2018-11-12] MEDS: PALBOCICLIB 100 MG PO SCH (10:33)
[2018-11-12] MEDS: *HR* OxyCODONE/APAP 7.5/325 TABLET PO PRN ×2 (10:40→20:37)
[2018-11-13] MEDS: Acetaminophen 325 MG TABLET PO SCH ×5 (01:00→23:09)
[2018-11-13] MEDS: Ascorbic Acid 500 MG TABLET PO SCH (05:36)
[2018-11-13] MEDS: *HR* OxyCODONE/APAP 7.5/325 TABLET PO PRN ×2 (05:36→20:34)
[2018-11-13] MEDS: Cyanocobalamin (B-12) 1,000 MCG TABLET PO SCH (09:29)
[2018-11-13] MEDS: Multivit/Ca/Min/Fe/FA 1 TAB TABLET PO SCH (09:29)
[2018-11-13] MEDS: PALBOCICLIB 100 MG PO SCH (09:31)
[2018-11-13] MEDS ORDERED: Methyl Salicylate/Menthol 28 GM TUBE TP PRN (13:28)
[2018-11-14] MEDS: Ascorbic Acid 500 MG TABLET PO SCH (05:40)
[2018-11-14] MEDS: Acetaminophen 325 MG TABLET PO SCH ×3 (05:40→17:19)
[2018-11-14] MEDS: Cyanocobalamin (B-12) 1,000 MCG TABLET PO SCH (09:17)
[2018-11-14] MEDS: Multivit/Ca/Min/Fe/FA 1 TAB TABLET PO SCH (09:17)
[2018-11-14] MEDS: PALBOCICLIB 100 MG PO SCH (09:23)
--- NOTE | 2018-11-14 15:24 | Internal Med Progress Note ---
Date of Encounter: 11/14/18 Time of Encounter: 15:15 - Assessment and plan (1) Femoral distal fracture Current Visit: No Status: Acute Assessment and plan: October 03. Status post plate and screw repair. Remaining NWB with PT and OT interventions. October 05. Add scheduled Tylenol for pain control. October 14. Continue Tylenol for pain control. Continue PT and OT intervention. Continue Pradaxa for known DVT. October 21. Continue present interventions. Social service will begin process to transition to local SNF for ongoing care needs. October 24. Continue analgesics and therapy with orthopedic follow-up 11/11/2018. November 13. She remains NWB on left leg. Anticipate transitioning to SNF for ongoing care needs. Qualifiers: Encounter type: initial encounter Fracture type: closed Fracture morphology: unspecified fracture morphology Laterality: left Qualified Code(s): S72.402A - Unspecified fracture of lower end of left femur, initial encounter for closed fracture (2) Pancytopenia Current Visit: No Status: Acute Assessment and plan: October 03. All cell lines show improvement. Anemia testing showed iron 22, transferrin saturation 8%, transferrin 207, ferritin 162, B12 222, and folate 20.7. She will receive a B12 injection and start oral B12 supplement. Also start ferrous sulfate with ascorbic acid in a.m. October 05. Recheck labs in a.m. October 09. WBC improved to near normal. Thrombocytopenia resolved. Hemoglobin minimally decreased at 9.0. Continue ferrous sulfate with ascorbic acid and oral B12 supplement. October 12. WBC and platelet count now normal. Hemoglobin stable at 9.1. Continue ferrous sulfate, ascorbic acid, and oral B12 supplement and monitor. October 14. Continue to monitor labs periodically. October 16. Recheck labs in a.m. October 19. Hemoglobin stable at 9.0 on 10/17/2018. Platelet count has risen to 420 K. WBC remains normal at 5.3K. Continue to monitor periodically. October 31. Labs stable. Continue to monitor periodically. November 13. Recheck labs in a.m. (3) Macrocytosis Current Visit: No Status: Acute Assessment and plan: October 03. TSH was normal at 4.181 on 07/23/2018. B12 low. Rx as per above. October 09. Continue supplemental B12. 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 Continue Pradaxa Qualifiers: Chronicity: chronic Qualified Code(s): I82.532 - Chronic embolism and throm bosis of left popliteal vein (5) Breast cancer metastasized to bone Current Visit: No Status: Chronic Assessment and plan: October 03. As per oncologist October 24. Possible restart chemotherapy has been discussed. No plans for transfer to SNF at this time. October 27. Multiple unsuccessful attempts have been made to contact [facility] to discuss possibly restarting chemotherapy. October 31. She will have a visit at [facility] November 05 2018. Staff at [facility] has been told she will receive a chemotherapy treatment at that time and meet with the oncologist for further planning. November 06. Oncology has started her on Faslodex every 4 weeks and Zometa every 12 weeks. Follow-up appointment with Dr. Giordano is 12/03/2018 when both agents will be given.. She will have CT of chest/abdomen/pelvis and nuclear medicine medicine whole-body bone scan prior to the 12/03/2018 visit. Qualifiers: Laterality: left Qualified Code(s): C50.912 - Malignant neoplasm of unspecified site of left female breast; C79.51 - Secondary malignant neoplasm of bone (6) Urinary frequency Current Visit: Yes Status: Acute Assessment and plan: October 16. Will check UA C/S and postvoid residual. October 19. Urine culture returned showing no growth. Discontinue Cipro and lactobacillus. November 03. Give Urecholine and discontinue Oh. November 06. Postvoid residual will be done. - Subjective Interval history: October 03. She has no new complaints. October 06. She has no new complaints. She states her left leg pain is 6/10 intensity October 09. She has no new complaints. She saw the orthopedist staff today at an office visit. October 12. She has no new complaints. October 14. She has no new complaints. October 16. She reports urinary frequency and is often incontinent. October 19. She has no new complaints. She now has Oh catheter due to inadequate bladder emptying. October 21. She has no new complaints. She thinks now she should go to a local SNF for ongoing rehabilitation therapy before attempting to go home. October 24. She has no new complaints. She saw the orthopedist staff earlier today. It has been reported to nursing staff that consideration for restarting chemotherapy is being given by oncology. If this is correct she will not be transferred to SNF at this time. October 27. She has no new complaints. October 31. She has no new complaints. November 03. She has no new complaints. She states her day pass yesterday went well. November 06. She has no new complaints. She states she was incontinent of urine approximately one hour ago. November 10. She has no new complaints. She reports her day pass went well yesterday including no difficulty with car transfers. November 13. She has no new complaints except she feels "down". - Constitutional Vitals: Temp Pulse Resp BP Pulse Ox 99.2 F 74 16 123/72 95 11/14/18 07:08 11/14/18 07:08 11/14/18 07:08 11/14/18 07:08 11/14/18 07:08 Exam: She is resting comfortably in a chair at bedside. She is wearing left leg brace as usual. There is no pitting edema of her lower legs. I reviewed her medications and lab results. Internal Medicine: Result - Labs CBC & Chem 7: 11/04/18 05:45 11/04/18 05:45 Consult Discharge Plan - Plan Referrals: Andrew Giordano MD [Partnered Physician] - 1 week (DECEMBER 10, 2018 @ 3:45 pm) Anna Beckett CNP [Primary Care Provider] - 1 week
[2018-11-14] MEDS: *HR* OxyCODONE/APAP 7.5/325 TABLET PO PRN (20:43)
[2018-11-15] MEDS: Ascorbic Acid 500 MG TABLET PO SCH (05:15)
[2018-11-15] MEDS: Acetaminophen 325 MG TABLET PO SCH ×4 (05:16→18:09)
[2018-11-15 05:34] LABS: Basophils % 0.3 %; Eosinophils % 0.6 %; Hematocrit 29.7 % (35.3-44.9); Hemoglobin 9.4 g/dL (11.5-15.4); Immature Granulocytes % 0.6 % (0-4); Lymphocytes # 0.7 K/mcL (0.6-4.6); Lymphocytes % 20.1 %; Mean Corpuscular HGB Conc 31.6 g/dL (31.6-35.5); Mean Corpuscular Hemoglobin 32.6 pg (28.0-33.3); Mean Corpuscular Volume 103.1 fL (83.0-100.0); Mean Platelet Volume 10.1 fL (9.4-12.4); Monocytes # 0.2 K/mcL (0.0-1.3); Neutrophils # 2.4 K/mcL (1.6-8.9); Platelet Count 266 K/mcL (140-400); Red Blood Count 2.88 M/mcL (3.82-4.97); Red Cell Distribution Width 16.3 % (11.5-14.5); Segmented Neutrophils % 72.4 %
[2018-11-15 06:01] LABS: BUN/Creatinine Ratio 19 (6-26); Blood Urea Nitrogen 11 mg/dL (8-23); Calcium 8.8 mg/dL (8.6-10.3); Carbon Dioxide 30 mEq/L (23-29); Chloride 100 mEq/L (98-107); Glucose 89 mg/dL (70-105); Osmolality,Calculated 285 (280-300); Potassium 3.6 mEq/L (3.5-5.1); Sodium 138 mEq/L (136-145); eGFR For Non-African Americans > 60 (> 60)
[2018-11-15 07:06] LABS: Platelet Estimate Normal (Normal)
[2018-11-15] MEDS: PALBOCICLIB 100 MG PO SCH (09:45)
[2018-11-15] MEDS: *HR* OxyCODONE/APAP 7.5/325 TABLET PO PRN ×2 (09:47→21:18)
[2018-11-15] MEDS: Multivit/Ca/Min/Fe/FA 1 TAB TABLET PO SCH (09:47)
[2018-11-15] MEDS: Cyanocobalamin (B-12) 1,000 MCG TABLET PO SCH (09:47)
[2018-11-16] MEDS: Acetaminophen 325 MG TABLET PO SCH ×4 (00:55→18:27)
[2018-11-16] MEDS: Ascorbic Acid 500 MG TABLET PO SCH (06:49)
[2018-11-16] MEDS: Cyanocobalamin (B-12) 1,000 MCG TABLET PO SCH (10:10)
[2018-11-16] MEDS: *HR* OxyCODONE/APAP 7.5/325 TABLET PO PRN ×2 (10:10→21:55)
[2018-11-16] MEDS: Multivit/Ca/Min/Fe/FA 1 TAB TABLET PO SCH (10:10)
[2018-11-16] MEDS: PALBOCICLIB 100 MG PO SCH (10:11)
--- NOTE | 2018-11-16 11:33 | Internal Med Progress Note ---
Date of Encounter: 11/16/18 Time of Encounter: 11:25 - Assessment and plan (1) Femoral distal fracture Current Visit: No Status: Acute Assessment and plan: October 03. Status post plate and screw repair. Remaining NWB with PT and OT interventions. October 05. Add scheduled Tylenol for pain control. October 14. Continue Tylenol for pain control. Continue PT and OT intervention. Continue Pradaxa for known DVT. October 21. Continue present interventions. Social service will begin process to transition to local SNF for ongoing care needs. October 24. Continue analgesics and therapy with orthopedic follow-up 11/11/2018. November 13. She remains NWB on left leg. Anticipate transitioning to SNF for ongoing care needs. Qualifiers: Encounter type: initial encounter Fracture type: closed Fracture morphology: unspecified fracture morphology Laterality: left Qualified Code(s): S72.402A - Unspecified fracture of lower end of left femur, initial encounter for closed fracture (2) Pancytopenia Current Visit: No Status: Acute Assessment and plan: October 03. All cell lines show improvement. Anemia testing showed iron 22, transferrin saturation 8%, transferrin 207, ferritin 162, B12 222, and folate 20.7. She will receive a B12 injection and start oral B12 supplement. Also start ferrous sulfate with ascorbic acid in a.m. October 05. Recheck labs in a.m. October 09. WBC improved to near normal. Thrombocytopenia resolved. Hemoglobin minimally decreased at 9.0. Continue ferrous sulfate with ascorbic acid and oral B12 supplement. October 12. WBC and platelet count now normal. Hemoglobin stable at 9.1. Continue ferrous sulfate, ascorbic acid, and oral B12 supplement and monitor. October 14. Continue to monitor labs periodically. October 16. Recheck labs in a.m. October 19. Hemoglobin stable at 9.0 on 10/17/2018. Platelet count has risen to 420 K. WBC remains normal at 5.3K. Continue to monitor periodically. October 31. Labs stable. Continue to monitor periodically. November 14. Recheck labs in a.m. November 16. Hemoglobin improved to 9.4. WBC 3.3 and platelet count 266K. Continue present Rx. (3) Macrocytosis Current Visit: No Status: Acute Assessment and plan: October 03. TSH was normal at 4.181 on 07/23/2018. B12 low. Rx as per above. October 09. Continue supplemental B12. 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 As per oncologist October 24. Possible restart chemotherapy has been discussed. No plans for transfer to SNF at this time. October 27. Multiple unsuccessful attempts have been made to contact [facility] to discuss possibly restarting chemotherapy. October 31. She will have a visit at [facility] November 05 2018. Staff at [facility] has been told she will receive a chemotherapy treatment at that time and meet with the oncologist for further planning. November 06. Oncology has started her on Faslodex every 4 weeks and Zometa every 12 weeks. Follow-up appointment with Dr. Giordano is 12/03/2018 when both agents will be given.. She will have CT of chest/abdomen/pelvis and nuclear medicine medicine whole-body bone scan prior to the 12/03/2018 visit. Qualifiers: Laterality: left Qualified Code(s): C50.912 - Malignant neoplasm of unspecified site of left female breast; C79.51 - Secondary malignant neoplasm of bone (6) Urinary frequency Current Visit: Yes Status: Acute Assessment and plan: October 16. Will check UA C/S and postvoid residual. October 19. Urine culture returned showing no growth. Discontinue Cipro and lactobacillus. November 03. Give Urecholine and discontinue Oh. November 06. Postvoid residual will be done. November 16. Oh catheter remains out. Decrease Urecholine. - Subjective Interval history: October 03. She has no new complaints. October 06. She has no new complaints. She states her left leg pain is 6/10 intensity October 09. She has no new complaints. She saw the orthopedist staff today at an office visit. October 12. She has no new complaints. October 14. She has no new complaints. October 16. She reports urinary frequency and is often incontinent. October 19. She has no new complaints. She now has Oh catheter due to inadequ ate bladder emptying. October 21. She has no new complaints. She thinks now she should go to a local SNF for ongoing rehabilitation therapy before attempting to go home. October 24. She has no new complaints. She saw the orthopedist staff earlier today. It has been reported to nursing staff that consideration for restarting chemotherapy is being given by oncology. If this is correct she will not be transferred to SNF at this time. October 27. She has no new complaints. October 31. She has no new complaints. November 03. She has no new complaints. She states her day pass yesterday went well. November 06. She has no new complaints. She states she was incontinent of urine approximately one hour ago. November 10. She has no new complaints. She reports her day pass went well yesterday including no difficulty with car transfers. November 14. She has no new complaints except she feels "down". November 16. She has no new complaints. - Constitutional Vitals: Temp Pulse Resp BP Pulse Ox 98.0 F 81 16 134/70 96 11/16/18 06:37 11/16/18 06:37 11/16/18 06:37 11/16/18 06:37 11/16/18 06:37 Exam: She is resting comfortably in bed and appears in no acute distress. Her affect is cheerful. Extremities show no pitting edema. She has a lesion on her right lower lateral back area that has a 1 x 2 mm necrotic central area with minimal surrounding erythema and some nodularity/induration subcutaneously. It is n ontender to palpation. Internal Medicine: Result - Labs CBC & Chem 7: 11/15/18 04:35 11/15/18 04:35 Consult Discharge Plan - Plan Referrals: Andrew Giordano MD [Partnered Physician] - 1 week (DECEMBER 10, 2018 @ 3:45 pm) Anna Beckett CNP [Primary Care Provider] - 1 week
[2018-11-17] MEDS: Acetaminophen 325 MG TABLET PO SCH ×4 (00:59→18:10)
[2018-11-17] MEDS: Ascorbic Acid 500 MG TABLET PO SCH (06:28)
[2018-11-17] MEDS: *HR* OxyCODONE/APAP 7.5/325 TABLET PO PRN ×2 (06:29→20:51)
[2018-11-17] MEDS: Cyanocobalamin (B-12) 1,000 MCG TABLET PO SCH (08:55)
[2018-11-17] MEDS: Multivit/Ca/Min/Fe/FA 1 TAB TABLET PO SCH (08:55)
[2018-11-17] MEDS: PALBOCICLIB 100 MG PO SCH (08:56)
[2018-11-18] MEDS: Acetaminophen 325 MG TABLET PO SCH ×4 (00:59→17:50)
[2018-11-18] MEDS: *HR* OxyCODONE/APAP 7.5/325 TABLET PO PRN ×2 (06:23→21:02)
[2018-11-18] MEDS: Ascorbic Acid 500 MG TABLET PO SCH (06:23)
[2018-11-18] MEDS: Multivit/Ca/Min/Fe/FA 1 TAB TABLET PO SCH (10:17)
[2018-11-18] MEDS: Cyanocobalamin (B-12) 1,000 MCG TABLET PO SCH (10:18)
[2018-11-18] MEDS: PALBOCICLIB 100 MG PO SCH (10:18)
[2018-11-19] MEDS: Acetaminophen 325 MG TABLET PO SCH ×4 (00:59→17:38)
[2018-11-19] MEDS: Ascorbic Acid 500 MG TABLET PO SCH (05:13)
[2018-11-19] MEDS: *HR* OxyCODONE/APAP 7.5/325 TABLET PO PRN ×2 (05:15→22:25)
[2018-11-19] MEDS: Multivit/Ca/Min/Fe/FA 1 TAB TABLET PO SCH (09:45)
[2018-11-19] MEDS: Cyanocobalamin (B-12) 1,000 MCG TABLET PO SCH (09:45)
[2018-11-19] MEDS: PALBOCICLIB 100 MG PO SCH (09:47)
--- NOTE | 2018-11-19 17:33 | Internal Med Progress Note ---
Date of Encounter: 11/19/18 Time of Encounter: 17:27 - Assessment and plan (1) Femoral distal fracture Current Visit: No Status: Acute Assessment and plan: October 03. Status post plate and screw repair. Remaining NWB with PT and OT interventions. October 05. Add scheduled Tylenol for pain control. October 14. Continue Tylenol for pain control. Continue PT and OT intervention. Continue Pradaxa for known DVT. October 21. Continue present interventions. Social service will begin process to transition to local SNF for ongoing care needs. October 24. Continue analgesics and therapy with orthopedic follow-up 11/11/2018. November 13. She remains NWB on left leg. Anticipate transitioning to SNF for ongoing care needs. Qualifiers: Encounter type: initial encounter Fracture type: closed Fracture morphology: unspecified fracture morphology Laterality: left Qualified Code(s): S72.402A - Unspecified fracture of lower end of left femur, initial encounter for closed fracture (2) Pancytopenia Current Visit: No Status: Acute Assessment and plan: October 03. All cell lines show improvement. Anemia testing showed iron 22, transferrin saturation 8%, transferrin 207, ferritin 162, B12 222, and folate 20.7. She will receive a B12 injection and start oral B12 supplement. Also start ferrous sulfate with ascorbic acid in a.m. October 05. Recheck labs in a.m. October 09. WBC improved to near normal. Thrombocytopenia resolved. Hemoglobin minimally decreased at 9.0. Continue ferrous sulfate with ascorbic acid and oral B12 supplement. October 12. WBC and platelet count now normal. Hemoglobin stable at 9.1. Continue ferrous sulfate, ascorbic acid, and oral B12 supplement and monitor. October 14. Continue to monitor labs periodically. October 16. Recheck labs in a.m. October 19. Hemoglobin stable at 9.0 on 10/17/2018. Platelet count has risen to 420 K. WBC remains normal at 5.3K. Continue to monitor periodically. October 31. Labs stable. Continue to monitor periodically. November 14. Recheck labs in a.m. November 16. Hemoglobin improved to 9.4. WBC 3.3 and platelet count 266K. Continue present Rx. (3) Macrocytosis Current Visit: No Status: Acute Assessment and plan: October 03. TSH was normal at 4.181 on 07/23/2018. B12 low. Rx as per above. October 09. Continue supplemental B12. 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 As per oncologist October 24. Possible restart chemotherapy has been discussed. No plans for transfer to SNF at this time. October 27. Multiple unsuccessful attempts have been made to contact [facility] to discuss possibly restarting chemotherapy. October 31. She will have a visit at [facility] November 05 2018. Staff at [facility] has been told she will receive a chemotherapy treatment at that time and meet with the oncologist for further planning. November 06. Oncology has started her on Faslodex every 4 weeks and Zometa every 12 weeks. Follow-up appointment with Dr. Giordano is 12/03/2018 when both agents will be given.. She will have CT of chest/abdomen/pelvis and nuclear medicine medicine whole-body bone scan prior to the 12/03/2018 visit. Qualifiers: Laterality: left Qualified Code(s): C50.912 - Malignant neoplasm of unspecified site of left female breast; C79.51 - Secondary malignant neoplasm of bone (6) Urinary frequency Current Visit: Yes Status: Acute Assessment and plan: October 16. Will check UA C/S and postvoid residual. October 19. Urine culture returned showing no growth. Discontinue Cipro and lactobacillus. November 03. Give Urecholine and discontinue Oh. November 06. Postvoid residual will be done. November 16. Oh catheter remains out. Decrease Urecholine. November 19. She states she has frequent urination. Postvoid residual bladder scan will be done. - Subjective Interval history: October 03. She has no new complaints. October 06. She has no new complaints. She states her left leg pain is 6/10 intensity October 09. She has no new complaints. She saw the orthopedist staff today at an office visit. October 12. She has no new complaints. October 14. She has no new complaints. October 16. She reports urinary frequency and is often incontinent. October 19. She has no new complaints. She now has Oh catheter due to inadequate bladder emptying. October 21. She has no new complaints. She thinks now she should go to a local SNF for ongoing rehabilitation therapy before attempting to go home. October 24. She has no new complaints. She saw the orthopedist staff earlier today. It has been reported to nursing staff that consideration for restarting chemotherapy is being given by oncology. If this is correct she will not be t ransferred to SNF at this time. October 27. She has no new complaints. October 31. She has no new complaints. November 03. She has no new complaints. She states her day pass yesterday went well. November 06. She has no new complaints. She states she was incontinent of urine approximately one hour ago. November 10. She has no new complaints. She reports her day pass went well yesterday including no difficulty with car transfers. November 14. She has no new complaints except she feels "down". November 16. She has no new complaints. November 19. She has no new complaints. - Constitutional Vitals: Temp Pulse Resp BP Pulse Ox 98.0 F 75 17 146/77 95 11/19/18 07:38 11/19/18 07:38 11/19/18 07:38 11/19/18 07:38 11/19/18 07:38 Exam: She is sitting in a chair at bedside resting comfortably. Her affect is bright and cheerful. I reviewed her medications and lab results. Internal Medicine: Result - Labs CBC & Chem 7: 11/15/18 04:35 11/15/18 04:35 Consult Discharge Plan - Plan Referrals: Andrew Giordano MD [Partnered Physician] - 1 week (DECEMBER 10, 2018 @ 3:45 pm) Anna Beckett CNP [Primary Care Provider] - 1 week
[2018-11-20] MEDS: Acetaminophen 325 MG TABLET PO SCH ×4 (00:30→16:57)
[2018-11-20] MEDS: Ascorbic Acid 500 MG TABLET PO SCH (06:33)
[2018-11-20] MEDS: PALBOCICLIB 100 MG PO SCH (09:30)
[2018-11-20] MEDS: Cyanocobalamin (B-12) 1,000 MCG TABLET PO SCH (09:30)
[2018-11-20] MEDS: Multivit/Ca/Min/Fe/FA 1 TAB TABLET PO SCH (09:34)
[2018-11-20] MEDS ORDERED: Ondansetron ODT 4 MG TAB.RAPDIS SL PRN (16:45)
[2018-11-20] MEDS: *HR* OxyCODONE/APAP 7.5/325 TABLET PO PRN (21:21)
[2018-11-21] MEDS: Acetaminophen 325 MG TABLET PO SCH ×4 (00:53→17:33)
[2018-11-21] MEDS: Ascorbic Acid 500 MG TABLET PO SCH (06:10)
[2018-11-21] MEDS: *HR* OxyCODONE/APAP 7.5/325 TABLET PO PRN ×2 (06:11→22:08)
[2018-11-21] MEDS: Multivit/Ca/Min/Fe/FA 1 TAB TABLET PO SCH (08:02)
[2018-11-21] MEDS: Cyanocobalamin (B-12) 1,000 MCG TABLET PO SCH (08:04)
[2018-11-21] MEDS: PALBOCICLIB 100 MG PO SCH (08:06)
[2018-11-22] MEDS: Acetaminophen 325 MG TABLET PO SCH ×3 (05:35→14:43)
[2018-11-22] MEDS: Ascorbic Acid 500 MG TABLET PO SCH (05:39)
[2018-11-22 08:54] VITALS: BP 133/80
--- NOTE | 2018-11-22 08:54 | Discharge Summary ---
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 Nick is a 78 year old female who was hospitalized at [facility] September 26- after a fall at home resulting in distal left femur fracture. She underwent plate and screw repair 09/29/2018 by . She received 1 unit packed red blood cells transfusion postoperatively. She was discharged to [facility] swing bed for rehabilitation therapy before returning to independent living. Initial orders were written by the emergency room physician. I saw her on October 02 and performed a swing bed history and physical. She was started on scheduled Tylenol for pain control. Additional analgesics were available prn. She remained nonweightbearing on the left leg. She will follow up with her orthopedist 12/09/2018. Pancytopenia showed gradual normalization of WBC and platelet count initially. Chemotherapy was restarted by her medical oncologist and WBC count decreased to 3.3 on 11/15/2018. Anemia testing showed iron 22, transferrin saturation 8%, transferrin 207, ferritin 162, B12 222, and folate 20.7. She was given a B12 injection and started on supplemental oral B12 and ferrous sulfate with ascorbic acid. She was maintained on Pradaxa for treatment of left popliteal vein DVT. Oh catheter was able to be discontinued with Urecholine. She will continue Urecholine at the SNF. She made limited progress with PT/OT due to her nonweightbearing status. It was felt she was unable to have care needs met at home. She will be discharged to [facility] today for ongoing care needs. - Time Spent with Patient Total time spent providing and/or coordinating discharge services: - Discharge Medications Prescriptions: New Methyl Salicylate/Menthol [Bengay] 1 appl TP BID PRN tube PRN Reason: Muscle Pain Ferrous Sulfate 325 mg PO 0630 tablet OxyCODONE/APAP 7.5/325 [Percocet 7.5/325 MG] 1 each PO Q6HR PRN 30 Days #120 tablet PRN Reason: Pain Acetaminophen [Tylenol] 650 mg PO Q6HR tablet Bethanechol [Urecholine] 12.5 mg PO BID tablet Cyanocobalamin (B-12) [Vitamin B12] 1,000 mcg PO DAILY tablet Ascorbic Acid [Vitamin C] 500 mg PO 0630 tablet Ondansetron ODT [Zofran ODT] 4 mg SL Q4HR PRN tab.rapdis PRN Reason: Nausea And Vomiting Polyethylene Glycol 3350 [MiraLAX] 17 gm PO DAILY PRN powd.pack PRN Reason: Constipation Patient Taking Own Medication 1 each PO DAILY each Patient Taking Own Medication 1 each PO BID each Continued Carvedilol [Coreg] 6.25 mg PO BIDWM Dabigatran Etexilate Mesylate [Pradaxa] 110 mg PO BID #180 capsule Cyanocobalamin (B-12) [Vitamin B12] 1,000 mcg IM QMONTH #12 vial Multivitamin [Daily Multiple Vitamin] 1 tab PO DAILY Losartan Potassium 50 mg PO DAILY Home Medications: Carvedilol [Coreg] 6.25 mg PO BIDWM 03/23/15 [History] Dabigatran Etexilate Mesylate [Pradaxa] 110 mg PO BID #180 capsule 06/10/18 [Rx] Cyanocobalamin (B-12) [Vitamin B12] 1,000 mcg IM QMONTH #12 vial 08/20/18 [Rx] Losartan Potassium 50 mg PO DAILY 09/27/18 [History] Multivitamin [Daily Multiple Vitamin] 1 tab PO DAILY 09/27/18 [History] Acetaminophen [Tylenol] 650 mg PO Q6HR tablet 11/22/18 [Rx] Ascorbic Acid [Vitamin C] 500 mg PO 0630 tablet 11/22/18 [Rx] Bethanechol [Urecholine] 12.5 mg PO BID tablet 11/22/18 [Rx] Cyanocobalamin (B-12) [Vitamin B12] 1,000 mcg PO DAILY tablet 11/22/18 [Rx] Ferrous Sulfate 325 mg PO 0630 tablet 11/22/18 [Rx] Methyl Salicylate/Menthol [Bengay] 1 appl TP BID PRN tube 11/22/18 [Rx] Ondansetron ODT [Zofran ODT] 4 mg SL Q4HR PRN tab.rapdis 11/22/18 [Rx] OxyCODONE/APAP 7.5/325 [Percocet 7.5/325 MG] 1 each PO Q6HR PRN 30 Days #120 tablet 11/22/18 [Rx] Patient Taking Own Medication 1 each PO BID each 11/22/18 [Rx] Patient Taking Own Medication 1 each PO DAILY each 11/22/18 [Rx] Polyethylene Glycol 3350 [MiraLAX] 17 gm PO DAILY PRN powd.pack 11/22/18 [Rx] Allergies/Adverse Reactions: Allergy/AdvReac Type Severity Reaction Status Date / Time Penicillins [PCN] Allergy Swelling Verified 11/05/18 15:02 of Lip/Tongue/Throat Sulfa (Sulfonamide Allergy Rash Verified 11/05/18 15:02 Antibiotics) Date of admission: 10/01/18 20:50 Primary care physician: Anna Beckett CNP Consults: 10/01/18 22:35 Consult to Occupational Therapy [CONS] Routine Comment: Evaluate, develop and implement POC Reason for Consult: Evaluate, develop and implement POC Does patient have active BEDREST order?: No Is patient medically & hemodynamically stable?: Yes Patient assessed for mobility or mobilized this visit?: Yes Consult to Physical Therapy [CONS] Routine Comment: Evaluate, develop and implement POC Reason for Consult: Evaluate, develop and implement POC Does patient have active BEDREST order?: No Is patient medically & hemodynamically stable?: Yes Patient assessed for mobility or mobilized this visit?: Yes 10/02/18 00:03 Consult to Guide Cruise [CONS] Routine Reason for SW Consult: New swing bed, dishcarge plannning - Constitutional Vitals: Temp Pulse Resp BP Pulse Ox 97.6 F 78 17 115/71 96 11/21/18 19:35 11/21/18 19:35 11/21/18 19:35 11/21/18 19:35 11/21/18 19:35 - Patient Status Disposition: Transfer SNF - Discharge Instructions Follow Up With: Andrew Giordano MD [Partnered Physician] - 1 week (DECEMBER 10, 2018 @ 3:45 pm) - Diet and Activity Activity: as per physical therapy Diet: regular diet
--- NOTE | 2018-11-22 09:03 | Physician Discharge Referral ---
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 Priority: Secondary Status: Chronic (5) Breast cancer metastasized to bone Priority: Secondary Status: Chronic (6) Urinary frequency Priority: Secondary Status: Acute (7) B12 deficiency Priority: Secondary Status: Chronic Prognosis: Fair Aware of Diagnosis: Patient, Family Aware of Prognosis: Patient, Family - Transfer Medications Prescriptions: OxyCODONE/APAP 7.5/325 [Percocet 7.5/325 MG] 1 each PO Q6HR PRN 30 Days #120 tablet PRN Reason: Pain Home Medications: Carvedilol [Coreg] 6.25 mg PO BIDWM 03/23/15 [History] Dabigatran Etexilate Mesylate [Pradaxa] 110 mg PO BID #180 capsule 06/10/18 [Rx] Cyanocobalamin (B-12) [Vitamin B12] 1,000 mcg IM QMONTH #12 vial 08/20/18 [Rx] Losartan Potassium 50 mg PO DAILY 09/27/18 [History] Multivitamin [Daily Multiple Vitamin] 1 tab PO DAILY 09/27/18 [History] Acetaminophen [Tylenol] 650 mg PO Q6HR tablet 11/22/18 [Rx] Ascorbic Acid [Vitamin C] 500 mg PO 0630 tablet 11/22/18 [Rx] Bethanechol [Urecholine] 12.5 mg PO BID tablet 11/22/18 [Rx] Cyanocobalamin (B-12) [Vitamin B12] 1,000 mcg PO DAILY tablet 11/22/18 [Rx] Ferrous Sulfate 325 mg PO 0630 tablet 11/22/18 [Rx] Methyl Salicylate/Menthol [Bengay] 1 appl TP BID PRN tube 11/22/18 [Rx] Ondansetron ODT [Zofran ODT] 4 mg SL Q4HR PRN tab.rapdis 11/22/18 [Rx] OxyCODONE/APAP 7.5/325 [Percocet 7.5/325 MG] 1 each PO Q6HR PRN 30 Days #120 tablet 11/22/18 [Rx] Patient Taking Own Medication 1 each PO BID each 11/22/18 [Rx] Patient Taking Own Medication 1 each PO DAILY each 11/22/18 [Rx] Polyethylene Glycol 3350 [MiraLAX] 17 gm PO DAILY PRN powd.pack 11/22/18 [Rx] Allergies/Adverse Reactions: Allergy/AdvReac Type Severity Reaction Status Date / Time Penicillins [PCN] Allergy Swelling Verified 11/05/18 15:02 of Lip/Tongue/Throat Sulfa (Sulfonamide Allergy Rash Verified 11/05/18 15:02 Antibiotics) - Respiratory Orders Smoking Cessation: Smoking cessation has been advised. For more information, call the [place] Tobacco Quit Line at 5-742-LERZ-NOW. - Rehabiliation Orders Rehab Potential: Fair - Diet Orders Regular CERTIFICATION: I certify that the transfer of the above named patient to an Extended Care Facility is necessary for the continuing treatment of the diagnosis listed. The above information is true and accurate reflection of patient's current condit ion. Confidential - Redisclosure prohibited without a patient's written consent.
[2018-11-22] MEDS: Multivit/Ca/Min/Fe/FA 1 TAB TABLET PO SCH (10:00)
[2018-11-22] MEDS: Cyanocobalamin (B-12) 1,000 MCG TABLET PO SCH (10:00)
[2018-11-22] MEDS: PALBOCICLIB 100 MG PO SCH (10:01)
== END 2018-11-22 14:01 | DRG 560 ==
LOC: INPPIK → OBSVTOIN 20:50
PROVIDERS: ADMIT Internal Medicine; ATTEND Internal Medicine

== ENCOUNTER 2020-09-23 15:32 | Inpatient (IN) ==
[2020-09-23] MEDS: Acetaminophen 325 MG TABLET PO SCH (20:12)
[2020-09-23] MEDS: carvediloL 6.25 MG TABLET PO SCH (20:13)
[2020-09-23] MEDS: DABIGATRAN ETEXILATE MESYLATE 110 MG PO SCH (20:13)
[2020-09-24] MEDS: Acetaminophen 325 MG TABLET PO SCH ×4 (01:07→21:54)
[2020-09-24] MEDS ORDERED: PALBOCICLIB PO SCH (09:00)
[2020-09-24] MEDS: Cyanocobalamin (B-12) 1,000 MCG TABLET PO SCH (09:18)
[2020-09-24] MEDS: DABIGATRAN ETEXILATE MESYLATE 110 MG PO SCH ×2 (09:23→21:56)
[2020-09-24] MEDS: carvediloL 6.25 MG TABLET PO SCH ×2 (09:23→21:54)
[2020-09-24 09:46] LABS: Basophils % 1.5 %; Eosinophils % 0.8 %; Hematocrit 28.2 % (35.3-44.9); Hemoglobin 8.9 g/dL (11.5-15.4); Immature Granulocytes % 0.4 % (0-4); Lymphocytes # 0.4 K/mcL (0.6-4.6); Lymphocytes % 15.6 %; Mean Corpuscular HGB Conc 31.6 g/dL (31.6-35.5); Mean Corpuscular Hemoglobin 33.6 pg (28.0-33.3); Mean Corpuscular Volume 106.4 fL (83.0-100.0); Monocytes # 0.3 K/mcL (0.0-1.3); Monocytes % 11.8 %; Neutrophils # 1.8 K/mcL (1.6-8.9); Platelet Count 192 K/mcL (140-400); Red Blood Count 2.65 M/mcL (3.82-4.97); Red Cell Distribution Width 18.8 % (11.5-14.5); Segmented Neutrophils % 69.9 %; White Blood Count 2.6 K/mcL (4.3-11.1)
[2020-09-24 09:58] LABS: BUN/Creatinine Ratio 21 (6-26); Blood Urea Nitrogen 12 mg/dL (8-23); Calcium 8.5 mg/dL (8.6-10.3); Carbon Dioxide 29 mEq/L (23-29); Chloride 99 mEq/L (98-107); Glucose 95 mg/dL (70-105); Osmolality,Calculated 280 (280-300); Potassium 3.5 mEq/L (3.5-5.1); Sodium 135 mEq/L (136-145); eGFR For African Americans > 60 (> 60); eGFR For Non-African Americans > 60 (> 60)
[2020-09-24 10:05] LABS: Anisocytosis 1+ (Not Present)
[2020-09-24 10:06] LABS: Poikilocytosis 1+ (Not Present)
[2020-09-25] MEDS: Acetaminophen 325 MG TABLET PO SCH ×4 (01:09→17:27)
[2020-09-25] MEDS: carvediloL 6.25 MG TABLET PO SCH ×2 (09:55→17:28)
[2020-09-25] MEDS: Cyanocobalamin (B-12) 1,000 MCG TABLET PO SCH (09:56)
[2020-09-25] MEDS: DABIGATRAN ETEXILATE MESYLATE 110 MG PO SCH ×2 (09:58→19:49)
[2020-09-26] MEDS: Acetaminophen 325 MG TABLET PO SCH ×5 (00:42→23:37)
[2020-09-26 07:42] LABS: Basophils % 1.3 %; Hematocrit 28.1 % (35.3-44.9); Hemoglobin 8.9 g/dL (11.5-15.4); Immature Granulocytes % 0.3 % (0-4); Lymphocytes # 0.6 K/mcL (0.6-4.6); Lymphocytes % 18.9 %; Mean Corpuscular HGB Conc 31.7 g/dL (31.6-35.5); Mean Corpuscular Hemoglobin 33.7 pg (28.0-33.3); Mean Corpuscular Volume 106.4 fL (83.0-100.0); Mean Platelet Volume 10.3 fL (9.4-12.4); Monocytes # 0.5 K/mcL (0.0-1.3); Monocytes % 16.5 %; Platelet Count 235 K/mcL (140-400); Red Blood Count 2.64 M/mcL (3.82-4.97); Red Cell Distribution Width 18.9 % (11.5-14.5)
[2020-09-26 07:44] LABS: Neutrophils # 1.9 K/mcL (1.6-8.9)
[2020-09-26 07:59] LABS: Alanine Aminotransferase 12 Units/L (7-52); Alkaline Phosphatase 73 Units/L (34-104); Aspartate Amino Transferase 16 Units/L (13-39); BUN/Creatinine Ratio 17 (6-26); Bilirubin,Total 0.3 mg/dL (0.3-1.0); Blood Urea Nitrogen 10 mg/dL (8-23); Calcium 8.7 mg/dL (8.6-10.3); Carbon Dioxide 32 mEq/L (23-29); Chloride 101 mEq/L (98-107); Globulin 3.1 g/dL (2.4-3.5); Glucose 87 mg/dL (70-105); Osmolality,Calculated 286 (280-300); Potassium 3.7 mEq/L (3.5-5.1); Sodium 139 mEq/L (136-145); Total Protein 6.1 g/dL (6.4-8.9); eGFR For African Americans > 60 (> 60); eGFR For Non-African Americans > 60 (> 60)
[2020-09-26] MEDS: DABIGATRAN ETEXILATE MESYLATE 110 MG PO SCH ×2 (09:21→19:57)
[2020-09-26] MEDS: carvediloL 6.25 MG TABLET PO SCH ×2 (09:22→18:19)
[2020-09-26] MEDS: Cyanocobalamin (B-12) 1,000 MCG TABLET PO SCH (09:22)
[2020-09-26] MEDS ORDERED: *HR* Enoxaparin 40 MG/0.4 ML SYRINGE SQ SCH (09:51)
[2020-09-27] MEDS: Acetaminophen 325 MG TABLET PO SCH ×4 (06:33→23:41)
[2020-09-27 08:53] LABS: % Iron Saturation 20 % (15-50); Iron 48 mcg/dL (50-170); Transferrin 174 mg/dL (203-362)
[2020-09-27 09:11] LABS: Ferritin 382 ng/mL (10-120)
[2020-09-27] MEDS: Cyanocobalamin (B-12) 1,000 MCG TABLET PO SCH (09:51)
[2020-09-27] MEDS: carvediloL 6.25 MG TABLET PO SCH ×2 (09:52→16:24)
[2020-09-27] MEDS: DABIGATRAN ETEXILATE MESYLATE 110 MG PO SCH ×2 (09:56→21:49)
[2020-09-28] MEDS: Acetaminophen 325 MG TABLET PO SCH ×3 (05:43→17:31)
[2020-09-28] MEDS: carvediloL 6.25 MG TABLET PO SCH ×2 (10:22→17:31)
[2020-09-28] MEDS: Cyanocobalamin (B-12) 1,000 MCG TABLET PO SCH (10:22)
[2020-09-28] MEDS: DABIGATRAN ETEXILATE MESYLATE 110 MG PO SCH ×2 (10:35→20:47)
[2020-09-28] MEDS: Sennosides/Docusate Sodium TABLET PO SCH (20:47)
[2020-09-29] MEDS: Acetaminophen 325 MG TABLET PO SCH ×5 (00:32→23:11)
[2020-09-29] MEDS: Cyanocobalamin (B-12) 1,000 MCG TABLET PO SCH (09:02)
[2020-09-29] MEDS: carvediloL 6.25 MG TABLET PO SCH ×2 (09:02→16:47)
[2020-09-29] MEDS: DABIGATRAN ETEXILATE MESYLATE 110 MG PO SCH ×2 (09:03→20:58)
[2020-09-29] MEDS: Sennosides/Docusate Sodium TABLET PO SCH ×2 (09:03→20:59)
[2020-09-29] MEDS ORDERED: E-Z-PAQUE (BARIUM SULF) SUSP 1 BOTTLE PO ONE (15:16)
[2020-09-29] MEDS ORDERED: E-Z-HD (BARIUM SULF) SUSPENSION PO ONE (15:16)
[2020-09-30] MEDS: Acetaminophen 325 MG TABLET PO SCH ×4 (05:26→22:32)
[2020-09-30] MEDS: Cyanocobalamin (B-12) 1,000 MCG TABLET PO SCH (09:30)
[2020-09-30] MEDS: carvediloL 6.25 MG TABLET PO SCH ×2 (09:30→18:42)
[2020-09-30] MEDS: DABIGATRAN ETEXILATE MESYLATE 110 MG PO SCH ×2 (09:34→20:11)
[2020-09-30] MEDS: Sennosides/Docusate Sodium TABLET PO SCH ×2 (09:36→20:11)
[2020-10-01] MEDS: Acetaminophen 325 MG TABLET PO SCH ×4 (06:11→23:02)
[2020-10-01] MEDS: Cyanocobalamin (B-12) 1,000 MCG TABLET PO SCH (08:08)
[2020-10-01] MEDS: carvediloL 6.25 MG TABLET PO SCH ×2 (08:08→18:37)
[2020-10-01] MEDS: Sennosides/Docusate Sodium TABLET PO SCH ×2 (08:09→21:20)
[2020-10-01] MEDS: DABIGATRAN ETEXILATE MESYLATE 110 MG PO SCH ×2 (08:14→21:20)
[2020-10-02] MEDS: Acetaminophen 325 MG TABLET PO SCH ×3 (05:48→17:10)
[2020-10-02] MEDS: carvediloL 6.25 MG TABLET PO SCH ×2 (09:33→17:10)
[2020-10-02] MEDS: Cyanocobalamin (B-12) 1,000 MCG TABLET PO SCH (09:33)
[2020-10-02] MEDS: DABIGATRAN ETEXILATE MESYLATE 110 MG PO SCH (10:00)
[2020-10-02] MEDS: PALBOCICLIB 100 MG PO SCH (10:00)
[2020-10-02] MEDS: Sennosides/Docusate Sodium TABLET PO SCH ×2 (10:00→20:30)
[2020-10-03] MEDS: DABIGATRAN ETEXILATE MESYLATE 110 MG PO SCH ×3 (02:57→20:25)
[2020-10-03] MEDS: Acetaminophen 325 MG TABLET PO SCH ×4 (02:58→17:49)
[2020-10-03] MEDS: carvediloL 6.25 MG TABLET PO SCH ×2 (07:07→17:49)
[2020-10-03] MEDS: Cyanocobalamin (B-12) 1,000 MCG TABLET PO SCH (13:46)
[2020-10-03] MEDS: Sennosides/Docusate Sodium TABLET PO SCH ×2 (13:46→20:25)
[2020-10-03] MEDS: PALBOCICLIB 100 MG PO SCH (13:46)
[2020-10-03] MEDS: Chlorhexidine Rinse 15 ML MOUTHWASH MM SCH (20:24)
[2020-10-04] MEDS: Acetaminophen 325 MG TABLET PO SCH ×4 (01:24→17:28)
[2020-10-04] MEDS: carvediloL 6.25 MG TABLET PO SCH ×2 (08:31→17:26)
[2020-10-04] MEDS: Cyanocobalamin (B-12) 1,000 MCG TABLET PO SCH (08:31)
[2020-10-04] MEDS: Sennosides/Docusate Sodium TABLET PO SCH ×2 (08:33→21:30)
[2020-10-04] MEDS: Chlorhexidine Rinse 15 ML MOUTHWASH MM SCH ×2 (08:42→21:28)
[2020-10-04] MEDS: DABIGATRAN ETEXILATE MESYLATE 110 MG PO SCH ×2 (08:43→21:29)
[2020-10-04] MEDS: PALBOCICLIB 100 MG PO SCH (08:43)
[2020-10-04 10:11] LABS: Hematocrit 30.1 % (35.3-44.9); Hemoglobin 9.3 g/dL (11.5-15.4); Immature Granulocytes % 0.3 % (0-4); Lymphocytes # 0.6 K/mcL (0.6-4.6); Lymphocytes % 20.3 %; Mean Corpuscular HGB Conc 30.9 g/dL (31.6-35.5); Mean Corpuscular Hemoglobin 33.8 pg (28.0-33.3); Mean Corpuscular Volume 109.5 fL (83.0-100.0); Mean Platelet Volume 9.8 fL (9.4-12.4); Monocytes # 0.3 K/mcL (0.0-1.3); Monocytes % 9.7 %; Platelet Count 307 K/mcL (140-400); Red Blood Count 2.75 M/mcL (3.82-4.97); Red Cell Distribution Width 19.6 % (11.5-14.5); Segmented Neutrophils % 67.7 %; White Blood Count 2.9 K/mcL (4.3-11.1)
[2020-10-04 10:36] LABS: BUN/Creatinine Ratio 23 (6-26); Blood Urea Nitrogen 14 mg/dL (8-23); Calcium 8.8 mg/dL (8.6-10.3); Carbon Dioxide 30 mEq/L (23-29); Chloride 101 mEq/L (98-107); Glucose 117 mg/dL (70-105); Osmolality,Calculated 288 (280-300); Potassium 3.6 mEq/L (3.5-5.1); Sodium 138 mEq/L (136-145); eGFR For African Americans > 60 (> 60); eGFR For Non-African Americans > 60 (> 60)
[2020-10-05] MEDS: Acetaminophen 325 MG TABLET PO SCH ×5 (01:03→23:48)
[2020-10-05] MEDS: Sennosides/Docusate Sodium TABLET PO SCH ×2 (09:42→21:44)
[2020-10-05] MEDS: Cyanocobalamin (B-12) 1,000 MCG TABLET PO SCH (09:43)
[2020-10-05] MEDS: carvediloL 6.25 MG TABLET PO SCH ×2 (09:43→17:42)
[2020-10-05] MEDS: DABIGATRAN ETEXILATE MESYLATE 110 MG PO SCH ×2 (09:48→21:45)
[2020-10-05] MEDS: PALBOCICLIB 100 MG PO SCH (09:48)
[2020-10-05] MEDS: Chlorhexidine Rinse 15 ML MOUTHWASH MM SCH ×2 (09:49→21:52)
[2020-10-06] MEDS: Acetaminophen 325 MG TABLET PO SCH ×2 (06:23→11:37)
[2020-10-06 06:56] VITALS: BP 139/64
[2020-10-06] MEDS: Sennosides/Docusate Sodium TABLET PO SCH (09:49)
[2020-10-06] MEDS: Chlorhexidine Rinse 15 ML MOUTHWASH MM SCH (09:49)
[2020-10-06] MEDS: Cyanocobalamin (B-12) 1,000 MCG TABLET PO SCH (09:50)
[2020-10-06] MEDS: carvediloL 6.25 MG TABLET PO SCH (09:50)
[2020-10-06] MEDS: PALBOCICLIB 100 MG PO SCH (09:57)
[2020-10-06] MEDS: DABIGATRAN ETEXILATE MESYLATE 110 MG PO SCH (09:57)
== END 2020-10-06 15:43 | disposition home health service (06) | DRG 603 ==
LOC: INPPIK 19:10
PROVIDERS: ADMIT Family Medicine; ATTEND Family Medicine